=== PATIENT | male | born 1930 | race Caucasian/White ===

== ENCOUNTER 2018-08-28 15:38 | Inpatient (IN) ==
[2018-08-28] MEDS ORDERED: ALBUTEROL/IPRATROPIUM 3 ML NEB RESP TX STA (16:24)
[2018-08-28 16:29] LABS: Basophils % 0.2 % (0.0-0.8); Hematocrit 45.8 VOL% (42.0-52.0); Hemoglobin 15.4 GM/DL (14.0-18.0); Immature Granulocytes Absolute 0.08 #; Lymphocytes # 0.7 10*3/uL (1.4-4.0); Lymphocytes % 8.4 % (21.2-54.2); Mean Corpuscular HGB Conc 33.6 GM/DL (32-36); Mean Corpuscular Hemoglobin 35 PG (27-34); Mean Corpuscular Volume 104.1 FL (87-102); Mean Platelet Volume 11.5 FL (9.6-12.0); Monocytes # 0.5 10*3/uL (0.11-0.8); Monocytes % 6.3 % (1.7-12.7); Neutrophils % 84.1 % (38.7-73.9); Red Cell Distribution Width 15.3 % (9.3-17.3); White Blood Count 8.3 T/CUMM (4-12)
[2018-08-28 16:37] LABS: Platelet Count 93 T/CUMM (130-400)
[2018-08-28 16:53] LABS: Alanine Aminotransferase 37 U/L (16-61); Albumin 2.8 G/DL (3.4-5.0); Alkaline Phosphatase 90 U/L (45-117); Aspartate Amino Transferase 50 U/L (0-37); Blood Urea Nitrogen 24 MG/DL (7-18); Calcium 9.7 MG/DL (8.5-10.1); Glucose 233 MG/DL (74-106); Osmolality,Calculated 289.4 MOS/KG (273-304); Potassium 3.6 MMOL/L (3.5-5.1); Sodium 140 MMOL/L (136-145); Total Protein 6.4 G/DL (6.4-8.3); Troponin I 0.155 NG/ML (0.00-0.045)
[2018-08-28 16:57] LABS: Lactic Acid 3.3 MMOL/L (0.4-2.0)
[2018-08-28] MEDS ORDERED: ONDANSETRON 4 MG/2 ML VIAL IV STA (17:00)
[2018-08-28] MEDS ORDERED: methylPREDNISolone SOD SUC 125 MG/2 ML VIAL IV STA (17:00)
[2018-08-28] MEDS ORDERED: PIPERACILLIN/TAZOBACTAM 3,375 MG in SODIUM CHLORIDE 0.9% 100 ML IV STA ×2 (17:00→17:06)
[2018-08-28] MEDS ORDERED: FUROSEMIDE 100 MG/10 ML VIAL IV STA (17:00)
[2018-08-28 17:40] LABS: INR 1.4; Partial Thromboplastin Time 29.3 SECS (0-40)
[2018-08-28] MEDS ORDERED: ONDANSETRON 4 MG/2 ML VIAL IV PRN (17:43)
[2018-08-28] MEDS ORDERED: GLUCAGON 1 MG VIAL IM PRN (17:43)
[2018-08-28] MEDS ORDERED: ACETAMINOPHEN 325 MG TABLET PO PRN (17:43)
[2018-08-28] MEDS ORDERED: DEXTROSE 50% 25 GM/50 ML SYRINGE IV PRN (17:43)
[2018-08-28] MEDS ORDERED: ALBUTEROL 2.5 MG/3 ML NEB RESP TX PRN (18:01)
[2018-08-28 18:25] LABS: Folate > 24.0 NG/ML (5.4-24.0); Vitamin B12 631 PG/ML (211-911)
[2018-08-28 18:39] LABS: Apearance,Urine CLEAR (Clear); Bilirubin,Urine Negative (Negative); Blood, Urine Moderate mg/dL (Negative); Glucose,Urine (UA) Negative (Negative); Hyaline Casts,Urine 1 /LPF (0-3); Ketones,Urine Negative (Negative); Mucus,Urine Occasional /LPF (Occasional); Nitrite,Urine Negative (Negative); Protein,Urine 100 MG/DL; RBC,Urine 1 /HPF (0-4); Urine Color Yellow (Yellow); Urine Specific Gravity 1.008 (1.001-1.035); Urine Urobilinogen < 2.0 EU/DL (0.2-1.0); WBC,Urine <1 /HPF (0-6)
[2018-08-28 19:27] LABS: Platelet Estimate Decreased; Platelet Satellitism Few
[2018-08-28] MEDS: ALBUTEROL/IPRATROPIUM 3 ML NEB RESP TX SCH (19:37)
[2018-08-28] MEDS: FERROUS SULFATE 325 MG TABLET PO SCH (20:03)
[2018-08-28] MEDS: TAMSULOSIN 0.4 MG CAPSULE PO SCH (20:03)
[2018-08-28] MEDS: WARFARIN 4 MG TABLET PO SCH (20:03)
[2018-08-28] MEDS: SODIUM CHLORIDE 0.9% 1,000 ML IV SCH (20:04)
[2018-08-28] MEDS: POTASSIUM CHLORIDE 20 MEQ TABLET PO SCH (21:56)
[2018-08-28] MEDS: MAGNESIUM OXIDE 400 MG TABLET PO SCH (21:57)
[2018-08-28] MEDS: ATENOLOL 25 MG TABLET PO SCH (21:57)
[2018-08-28] MEDS: SIMVASTATIN 20 MG TABLET PO SCH (21:57)
[2018-08-28] MEDS: LEVOFLOXACIN INJ 750 MG in PREMIX 1 EACH IV SCH (21:58)
[2018-08-28] MEDS: BUDESONIDE/FORMOTEROL 160-4.5 INHALER 6 GM INH SCH (22:43)
[2018-08-29] MEDS: ALBUTEROL/IPRATROPIUM 3 ML NEB RESP TX SCH ×4 (00:26→17:58)
[2018-08-29] MEDS: PIPERACILLIN/TAZOBACTAM 3,375 MG in SODIUM CHLORIDE 0.9% 100 ML IV SCH ×3 (02:33→17:09)
[2018-08-29] MEDS: SODIUM CHLORIDE 0.9% 1,000 ML IV SCH ×3 (04:12→20:58)
[2018-08-29 05:06] LABS: Basophils % 0.1 % (0.0-0.8); Hematocrit 44.9 VOL% (42.0-52.0); Hemoglobin 14.5 GM/DL (14.0-18.0); INR 1.4; Immature Granulocytes % 0.4 %; Immature Granulocytes Absolute 0.03 #; Lymphocytes # 0.4 10*3/uL (1.4-4.0); Lymphocytes % 5.6 % (21.2-54.2); Mean Corpuscular HGB Conc 32.3 GM/DL (32-36); Mean Corpuscular Hemoglobin 34 PG (27-34); Mean Corpuscular Volume 104.7 FL (87-102); Mean Platelet Volume 11.7 FL (9.6-12.0); Monocytes # 0.2 10*3/uL (0.11-0.8); Monocytes % 2.8 % (1.7-12.7); Neutrophils # 6.6 10*3/uL (1.4-7.4); Neutrophils % 91.1 % (38.7-73.9); PT Patient Result 15.4 SECS; Red Blood Count 4.29 MC/CUMM (3.8-5.5); Red Cell Distribution Width 15.5 % (9.3-17.3); White Blood Count 7.2 T/CUMM (4-12)
[2018-08-29 05:10] LABS: Platelet Count 75 T/CUMM (130-400)
[2018-08-29 05:29] LABS: Band Neutrophils 2 % (0-10); Hypochromasia 1+; Lymphocytes 5 % (20-55); Platelet Estimate Decreased; Segmented Neutrophils 91 % (50-85); Total Cells Counted 100
[2018-08-29 05:33] LABS: Albumin 2.7 G/DL (3.4-5.0); Bilirubin,Total 1.4 MG/DL (0.2-1.0); Osmolality,Calculated 297.3 MOS/KG (273-304); Potassium 3.7 MMOL/L (3.5-5.1); Total Protein 5.9 G/DL (6.4-8.3)
[2018-08-29 05:36] LABS: Risk Ratio 3.27; Thyroid Stimulating Hormone 0.362 uIU/ml (0.358-3.74); VLDL CHOLESTEROL 21.4 MG/DL
[2018-08-29] MEDS: LEVOTHYROXINE 150 MCG TABLET PO SCH (06:10)
[2018-08-29] MEDS: methylPREDNISolone SOD SUC 40 MG/1 ML VIAL IV SCH ×2 (06:10→17:09)
[2018-08-29] MEDS: MONTELUKAST 10 MG TABLET PO SCH (08:47)
[2018-08-29] MEDS: ATENOLOL 25 MG TABLET PO SCH ×3 (08:47→20:57)
[2018-08-29] MEDS: POTASSIUM CHLORIDE 20 MEQ TABLET PO SCH ×2 (08:47→20:57)
[2018-08-29] MEDS: BUDESONIDE/FORMOTEROL 160-4.5 INHALER 6 GM INH SCH ×2 (08:47→20:57)
[2018-08-29] MEDS: PANTOPRAZOLE 40 MG TABLET PO SCH (08:47)
[2018-08-29] MEDS: FINASTERIDE 5 MG TABLET PO SCH (08:47)
[2018-08-29] MEDS ORDERED: MAGNESIUM OXIDE 400 MG TABLET PO SCH (09:00)
[2018-08-29] MEDS: WARFARIN 4 MG TABLET PO SCH (17:08)
[2018-08-29] MEDS: TAMSULOSIN 0.4 MG CAPSULE PO SCH (17:08)
[2018-08-29] MEDS: SIMVASTATIN 20 MG TABLET PO SCH (20:57)
[2018-08-29] MEDS: MAGNESIUM OXIDE 400 MG TABLET PO SCH (20:57)
[2018-08-30] MEDS: ALBUTEROL/IPRATROPIUM 3 ML NEB RESP TX SCH ×4 (00:49→21:46)
[2018-08-30] MEDS ORDERED: METOPROLOL TARTRATE 5 MG/5 ML VIAL IV ONE (01:24)
[2018-08-30] MEDS: PIPERACILLIN/TAZOBACTAM 3,375 MG in SODIUM CHLORIDE 0.9% 100 ML IV SCH ×3 (01:54→18:14)
[2018-08-30 04:03] LABS: Basophils % 0.2 % (0.0-0.8); Hematocrit 43.6 VOL% (42.0-52.0); Hemoglobin 13.8 GM/DL (14.0-18.0); Immature Granulocytes % 0.5 %; Immature Granulocytes Absolute 0.06 #; Lymphocytes # 0.4 10*3/uL (1.4-4.0); Lymphocytes % 3.7 % (21.2-54.2); Mean Corpuscular HGB Conc 31.7 GM/DL (32-36); Mean Corpuscular Hemoglobin 34 PG (27-34); Mean Corpuscular Volume 105.8 FL (87-102); Mean Platelet Volume 12.3 FL (9.6-12.0); Monocytes # 0.5 10*3/uL (0.11-0.8); Neutrophils # 10.8 10*3/uL (1.4-7.4); Neutrophils % 91.6 % (38.7-73.9); Red Blood Count 4.12 MC/CUMM (3.8-5.5); Red Cell Distribution Width 15.4 % (9.3-17.3); White Blood Count 11.8 T/CUMM (4-12)
[2018-08-30 04:08] LABS: Platelet Count 89 T/CUMM (130-400)
[2018-08-30 04:59] LABS: Calcium 9.8 MG/DL (8.5-10.1); Osmolality,Calculated 301.3 MOS/KG (273-304); Potassium 4.1 MMOL/L (3.5-5.1)
[2018-08-30] MEDS: methylPREDNISolone SOD SUC 40 MG/1 ML VIAL IV SCH ×2 (06:15→18:09)
[2018-08-30 06:17] LABS: Lymphocytes 2 % (20-55); Platelet Estimate Decreased; Polychromasia Few; Segmented Neutrophils 95 % (50-85); Total Cells Counted 100
[2018-08-30] MEDS: LEVOTHYROXINE 150 MCG TABLET PO SCH (06:19)
[2018-08-30] MEDS: MONTELUKAST 10 MG TABLET PO SCH (11:42)
[2018-08-30] MEDS: PANTOPRAZOLE 40 MG TABLET PO SCH (11:42)
[2018-08-30] MEDS: FINASTERIDE 5 MG TABLET PO SCH (11:45)
[2018-08-30] MEDS: ATENOLOL 25 MG TABLET PO SCH ×2 (11:45→21:58)
[2018-08-30] MEDS: BUDESONIDE/FORMOTEROL 160-4.5 INHALER 6 GM INH SCH ×2 (11:47→21:58)
[2018-08-30] MEDS: SODIUM CHLORIDE 0.9% 1,000 ML IV SCH (15:53)
[2018-08-30] MEDS: WARFARIN 4 MG TABLET PO SCH (18:06)
[2018-08-30] MEDS: TAMSULOSIN 0.4 MG CAPSULE PO SCH (18:07)
[2018-08-30] MEDS: FERROUS SULFATE 325 MG TABLET PO SCH (18:07)
[2018-08-30] MEDS: SIMVASTATIN 20 MG TABLET PO SCH (21:58)
[2018-08-30] MEDS: LEVOFLOXACIN INJ 750 MG in PREMIX 1 EACH IV SCH (22:00)
[2018-08-31] MEDS: ALBUTEROL/IPRATROPIUM 3 ML NEB RESP TX SCH ×2 (01:40→07:05)
[2018-08-31] MEDS: PIPERACILLIN/TAZOBACTAM 3,375 MG in SODIUM CHLORIDE 0.9% 100 ML IV SCH ×2 (03:05→10:34)
[2018-08-31 04:31] LABS: Basophils % 0.3 % (0.0-0.8); Hematocrit 40.6 VOL% (42.0-52.0); Hemoglobin 13.1 GM/DL (14.0-18.0); Immature Granulocytes % 1.2 %; Immature Granulocytes Absolute 0.14 #; Lymphocytes # 0.5 10*3/uL (1.4-4.0); Lymphocytes % 4.8 % (21.2-54.2); Mean Corpuscular HGB Conc 32.3 GM/DL (32-36); Mean Corpuscular Hemoglobin 34 PG (27-34); Mean Corpuscular Volume 105.5 FL (87-102); Mean Platelet Volume 12.1 FL (9.6-12.0); Monocytes # 0.4 10*3/uL (0.11-0.8); Monocytes % 3.7 % (1.7-12.7); NRBC # 0.02 10*3/uL; Neutrophils # 10.1 10*3/uL (1.4-7.4); Red Blood Count 3.85 MC/CUMM (3.8-5.5); White Blood Count 11.3 T/CUMM (4-12)
[2018-08-31 04:36] LABS: Platelet Count 95 T/CUMM (130-400)
[2018-08-31 04:46] LABS: INR 2.9
[2018-08-31 04:47] LABS: PT Patient Result 31.6 SECS
[2018-08-31 04:52] LABS: Calcium 9.7 MG/DL (8.5-10.1); Osmolality,Calculated 303.3 MOS/KG (273-304); Potassium 4.4 MMOL/L (3.5-5.1)
[2018-08-31 06:11] LABS: Calcium 9.5 MG/DL (8.5-10.1); Osmolality,Calculated 301.4 MOS/KG (273-304); Potassium 4.4 MMOL/L (3.5-5.1)
[2018-08-31] MEDS: LEVOTHYROXINE 150 MCG TABLET PO SCH (06:25)
[2018-08-31] MEDS: methylPREDNISolone SOD SUC 40 MG/1 ML VIAL IV SCH (06:25)
[2018-08-31] MEDS ORDERED: methylPREDNISolone SOD SUC 40 MG/1 ML VIAL IV SCH (07:49)
[2018-08-31 08:23] VITALS: BP 143/94
[2018-08-31] MEDS: MONTELUKAST 10 MG TABLET PO SCH (08:54)
[2018-08-31] MEDS: ATENOLOL 25 MG TABLET PO SCH (08:54)
[2018-08-31] MEDS: BUDESONIDE/FORMOTEROL 160-4.5 INHALER 6 GM INH SCH (08:54)
[2018-08-31] MEDS: PANTOPRAZOLE 40 MG TABLET PO SCH (08:54)
[2018-08-31] MEDS: FINASTERIDE 5 MG TABLET PO SCH (08:54)
[2018-08-31] MEDS: SODIUM CHLORIDE 0.9% 1,000 ML IV SCH (09:03)
[2018-08-31] MEDS ORDERED: cefTRIAXone 2,000 MG in SYRINGE 1 EACH IV ONE (10:16)
[2018-08-31] MEDS ORDERED: AZITHROMYCIN INJ 500 MG in SODIUM CHLORIDE 0.9% 250 ML IV ONE (10:26)
[2018-08-31] MEDS ORDERED: WARFARIN 3 MG TABLET PO SCH (18:00)
== END 2018-08-31 13:43 | disposition home health service (06) | DRG 872 ==
LOC: EDUNIT# → EDBD → N.ED 15:38 → N.EDINP 17:43 → N.TELES 19:01
PROVIDERS: ADMIT Internal Medicine Cardiovascular Disease; ATTEND Internal Medicine Cardiovascular Disease

== ENCOUNTER 2018-09-21 10:12 | Inpatient (IN) ==
[2018-09-21] MEDS ORDERED: ONDANSETRON 4 MG/2 ML VIAL IV STA (10:26)
[2018-09-21] MEDS ORDERED: ALBUTEROL/IPRATROPIUM 3 ML NEB RESP TX STA (10:26)
[2018-09-21 10:47] LABS: Basophils % 0.1 % (0.0-0.8); Eosinophils % 0.3 % (0.00-10.9); Hematocrit 46.3 VOL% (42.0-52.0); Hemoglobin 15.1 GM/DL (14.0-18.0); Immature Granulocytes % 1.3 %; Lymphocytes # 0.6 10*3/uL (1.4-4.0); Lymphocytes % 7.1 % (21.2-54.2); Mean Corpuscular HGB Conc 32.6 GM/DL (32-36); Mean Corpuscular Hemoglobin 33 PG (27-34); Mean Corpuscular Volume 102.2 FL (87-102); Mean Platelet Volume 11.6 FL (9.6-12.0); Monocytes # 0.4 10*3/uL (0.11-0.8); Monocytes % 4.5 % (1.7-12.7); Neutrophils # 6.8 10*3/uL (1.4-7.4); Neutrophils % 86.7 % (38.7-73.9); Platelet Count 96 T/CUMM (130-400); Red Blood Count 4.53 MC/CUMM (3.8-5.5); White Blood Count 7.8 T/CUMM (4-12)
[2018-09-21 11:07] LABS: Albumin 2.7 G/DL (3.4-5.0); Bilirubin,Total 1.1 MG/DL (0.2-1.0); Calcium 9.7 MG/DL (8.5-10.1); Osmolality,Calculated 285.5 MOS/KG (273-304); Potassium 5.3 MMOL/L (3.5-5.1); Total Protein 5.4 G/DL (6.4-8.3)
[2018-09-21 11:08] LABS: Troponin I 0.072 NG/ML (0.00-0.045)
[2018-09-21 12:06] LABS: Apearance,Urine CLEAR (Clear); Bilirubin,Urine Negative (Negative); Blood, Urine Negative (Negative); Glucose,Urine (UA) 50 mg/dL (Negative); Ketones,Urine Negative (Negative); Mucus,Urine Occasional /LPF (Occasional); Nitrite,Urine Negative (Negative); Protein,Urine 30 MG/DL; RBC,Urine 4 /HPF (0-4); Squamous Epithelial Cell,Urine Occasional /HPF (0-10); Urine Color Yellow (Yellow); Urine Specific Gravity 1.015 (1.001-1.035); Urine Urobilinogen < 2.0 EU/DL (0.2-1.0); WBC,Urine 2 /HPF (0-6)
[2018-09-21] MEDS ORDERED: FUROSEMIDE 40 MG/4 ML VIAL IV STA (12:06)
[2018-09-21 12:44] LABS: PT Patient Result 92.3 SECS; Partial Thromboplastin Time 43.7 SECS (0-40)
[2018-09-21 12:45] LABS: INR 8.7
[2018-09-21 12:56] LABS: Macrocytosis 1+
[2018-09-21 12:57] LABS: Platelet Estimate Decreased
[2018-09-21] MEDS ORDERED: ONDANSETRON 4 MG/2 ML VIAL IV PRN (13:34)
[2018-09-21] MEDS ORDERED: PHYTONADIONE 5 MG/5 ML ORAL.SYR PO ONE (13:50)
[2018-09-21] MEDS ORDERED: DEXTROSE 50% 25 GM/50 ML SYRINGE IV PRN (14:31)
[2018-09-21] MEDS ORDERED: GLUCAGON 1 MG VIAL IM PRN (14:31)
[2018-09-21] MEDS: TAMSULOSIN 0.4 MG CAPSULE PO SCH (17:45)
[2018-09-21] MEDS: INSULIN LISPRO 100 UNIT/ML SUBCUT SCH ×2 (17:45→21:58)
[2018-09-21] MEDS ORDERED: ENOXAPARIN 40 MG/0.4 ML SYRINGE SUBCUT SCH (21:00)
[2018-09-21] MEDS: ATENOLOL 25 MG TABLET PO SCH (21:46)
[2018-09-21] MEDS: SIMVASTATIN 20 MG TABLET PO SCH (21:46)
[2018-09-21] MEDS: POTASSIUM CHLORIDE 20 MEQ TABLET PO SCH (21:47)
[2018-09-21] MEDS: FUROSEMIDE 40 MG/4 ML VIAL IV SCH (21:48)
[2018-09-22 04:44] LABS: Basophils % 0.3 % (0.0-0.8); Eosinophils % 0.2 % (0.00-10.9); Hematocrit 46.8 VOL% (42.0-52.0); Hemoglobin 15.2 GM/DL (14.0-18.0); Immature Granulocytes Absolute 0.06 #; Lymphocytes # 0.5 10*3/uL (1.4-4.0); Lymphocytes % 7.8 % (21.2-54.2); Mean Corpuscular HGB Conc 32.5 GM/DL (32-36); Mean Corpuscular Hemoglobin 34 PG (27-34); Mean Corpuscular Volume 103.1 FL (87-102); Mean Platelet Volume 11.6 FL (9.6-12.0); Monocytes # 0.3 10*3/uL (0.11-0.8); Monocytes % 4.6 % (1.7-12.7); Neutrophils # 5.4 10*3/uL (1.4-7.4); Neutrophils % 86.1 % (38.7-73.9); Platelet Count 77 T/CUMM (130-400); Red Blood Count 4.54 MC/CUMM (3.8-5.5); Red Cell Distribution Width 14.8 % (9.3-17.3); White Blood Count 6.3 T/CUMM (4-12)
[2018-09-22 05:25] LABS: Calcium 8.9 MG/DL (8.5-10.1); Osmolality,Calculated 283.4 MOS/KG (273-304); Potassium 4.1 MMOL/L (3.5-5.1); Thyroid Stimulating Hormone 1.1 uIU/ml (0.358-3.74)
[2018-09-22 05:32] LABS: INR 3.4
[2018-09-22 05:33] LABS: PT Patient Result 36.1 SECS
[2018-09-22] MEDS: LEVOTHYROXINE 150 MCG TABLET PO SCH (06:41)
[2018-09-22 08:26] LABS: Eosinophils 1 % (0-10); Lymphocytes 4 % (20-55); Platelet Estimate Decreased; Polychromasia Slight; Segmented Neutrophils 89 % (50-85); Total Cells Counted 100
[2018-09-22 08:27] LABS: Ovalocytes Slight; Schistocytes Slight
[2018-09-22] MEDS: POTASSIUM CHLORIDE 20 MEQ TABLET PO SCH ×2 (10:02→22:14)
[2018-09-22] MEDS: ATENOLOL 25 MG TABLET PO SCH ×2 (10:02→22:13)
[2018-09-22] MEDS: PANTOPRAZOLE 40 MG TABLET PO SCH (10:02)
[2018-09-22] MEDS: FINASTERIDE 5 MG TABLET PO SCH (10:02)
[2018-09-22] MEDS: FUROSEMIDE 40 MG/4 ML VIAL IV SCH ×2 (10:03→22:19)
[2018-09-22] MEDS: INSULIN LISPRO 100 UNIT/ML SUBCUT SCH ×4 (10:06→21:17)
[2018-09-22 11:45] LABS: Apearance,Urine CLEAR (Clear); Bilirubin,Urine Negative (Negative); Blood, Urine Small mg/dL (Negative); Glucose,Urine (UA) 50 mg/dL (Negative); Ketones,Urine Negative (Negative); Mucus,Urine Occasional /LPF (Occasional); Nitrite,Urine Negative (Negative); Protein,Urine Negative; RBC,Urine 1 /HPF (0-4); Squamous Epithelial Cell,Urine Occasional /HPF (0-10); Urine Color Straw (Yellow); Urine Specific Gravity 1.006 (1.001-1.035); Urine Urobilinogen < 2.0 EU/DL (0.2-1.0); WBC,Urine 2 /HPF (0-6)
[2018-09-22] MEDS: TAMSULOSIN 0.4 MG CAPSULE PO SCH (17:06)
[2018-09-22] MEDS: SIMVASTATIN 20 MG TABLET PO SCH (22:13)
[2018-09-23 04:52] LABS: INR 1.3; PT Patient Result 14.2 SECS
[2018-09-23 04:54] LABS: Basophils % 0.2 % (0.0-0.8); Eosinophils % 0.7 % (0.00-10.9); Hematocrit 46.8 VOL% (42.0-52.0); Hemoglobin 15.4 GM/DL (14.0-18.0); Immature Granulocytes Absolute 0.06 #; Lymphocytes # 0.7 10*3/uL (1.4-4.0); Lymphocytes % 11.6 % (21.2-54.2); Mean Corpuscular HGB Conc 32.9 GM/DL (32-36); Mean Corpuscular Hemoglobin 34 PG (27-34); Mean Corpuscular Volume 103.3 FL (87-102); Mean Platelet Volume 12.4 FL (9.6-12.0); Monocytes # 0.4 10*3/uL (0.11-0.8); Neutrophils # 4.8 10*3/uL (1.4-7.4); Neutrophils % 80.5 % (38.7-73.9); Red Blood Count 4.53 MC/CUMM (3.8-5.5); Red Cell Distribution Width 14.9 % (9.3-17.3)
[2018-09-23 04:55] LABS: Platelet Count 61 T/CUMM (130-400)
[2018-09-23 05:18] LABS: Macrocytosis Slight
[2018-09-23 05:19] LABS: Calcium 8.7 MG/DL (8.5-10.1); Hypochromasia Slight; Osmolality,Calculated 287.4 MOS/KG (273-304); Platelet Estimate Decreased; Potassium 4.7 MMOL/L (3.5-5.1)
[2018-09-23] MEDS: LEVOTHYROXINE 150 MCG TABLET PO SCH (06:40)
[2018-09-23] MEDS: INSULIN LISPRO 100 UNIT/ML SUBCUT SCH ×2 (08:30→13:39)
[2018-09-23] MEDS ORDERED: ASPIRIN EC 81 MG TABLET PO SCH (09:00)
[2018-09-23] MEDS: FUROSEMIDE 40 MG/4 ML VIAL IV SCH (09:43)
[2018-09-23] MEDS: ATENOLOL 25 MG TABLET PO SCH (09:58)
[2018-09-23] MEDS: FINASTERIDE 5 MG TABLET PO SCH (09:59)
[2018-09-23] MEDS: POTASSIUM CHLORIDE 20 MEQ TABLET PO SCH (09:59)
[2018-09-23] MEDS: PANTOPRAZOLE 40 MG TABLET PO SCH (09:59)
[2018-09-23 12:52] VITALS: BP 105/69
[2018-09-23] MEDS ORDERED: BISACODYL 5 MG TABLET PO PRN (13:44)
[2018-09-23] MEDS ORDERED: FERROUS SULFATE 325 MG TABLET PO SCH (18:00)
== END 2018-09-23 15:43 | disposition swing bed (61) | DRG 292 ==
LOC: EDBD → EDUNIT# → N.ED 10:12 → N.TELES 13:11 → SUATTDRO 13:11 → N.TELES 14:31
PROVIDERS: ADMIT Internal Medicine; ATTEND Internal Medicine

== ENCOUNTER 2018-10-09 11:06 | Inpatient (IN) ==
[2018-10-09] MEDS ORDERED: SODIUM CHLORIDE 0.9% 1,000 ML IV STA (11:31)
[2018-10-09 11:36] LABS: Basophils % 0.5 % (0.0-0.8); Eosinophils % 0.2 % (0.00-10.9); Hematocrit 36.7 VOL% (42.0-52.0); Hemoglobin 11.6 GM/DL (14.0-18.0); Immature Granulocytes % 4.9 %; Immature Granulocytes Absolute 0.29 #; Lymphocytes # 0.7 10*3/uL (1.4-4.0); Lymphocytes % 12.5 % (21.2-54.2); Mean Corpuscular HGB Conc 31.6 GM/DL (32-36); Mean Corpuscular Hemoglobin 33 PG (27-34); Mean Corpuscular Volume 102.8 FL (87-102); Monocytes # 0.3 10*3/uL (0.11-0.8); Monocytes % 5.4 % (1.7-12.7); Neutrophils # 4.5 10*3/uL (1.4-7.4); Neutrophils % 76.5 % (38.7-73.9); Platelet Count 178 T/CUMM (130-400); Red Blood Count 3.57 MC/CUMM (3.8-5.5); Red Cell Distribution Width 15.6 % (9.3-17.3); White Blood Count 5.9 T/CUMM (4-12)
[2018-10-09 11:45] LABS: INR 1.1; PT Patient Result 11.8 SECS; Partial Thromboplastin Time 26.2 SECS (0-40)
[2018-10-09 12:12] LABS: ABG Base Excess 4.4 MMOL/L (-2.5-2.5); ABG HCO3 28.2 MMOL/L (20-26); ABG Oxygen Saturation 88.2 % (95-100); ABG PCO2 32.2 MM HG (35-48); ABG PH 7.527 (7.35-7.45); ABG PO2 53.7 MM HG (80-95); ABG TCO2 23.6 MMOL/L (23-27)
[2018-10-09] MEDS ORDERED: FUROSEMIDE 40 MG/4 ML VIAL IV STA (12:16)
[2018-10-09 12:41] LABS: Albumin 1.9 G/DL (3.4-5.0); Bilirubin,Total 0.8 MG/DL (0.2-1.0); Calcium 9.5 MG/DL (8.5-10.1); Osmolality,Calculated 290.5 MOS/KG (273-304); Potassium 4.7 MMOL/L (3.5-5.1); Total Protein 4.6 G/DL (6.4-8.3)
[2018-10-09] MEDS ORDERED: ONDANSETRON 4 MG/2 ML VIAL IV PRN (13:53)
[2018-10-09] MEDS ORDERED: diphenhydrAMINE CAP 25 MG CAPSULE PO PRN (13:53)
[2018-10-09] MEDS ORDERED: PROMETHAZINE 25 MG/1 ML VIAL IM PRN (13:53)
[2018-10-09] MEDS ORDERED: ACETAMINOPHEN 325 MG TABLET PO PRN (13:53)
[2018-10-09] MEDS ORDERED: traZODone 50 MG TABLET PO PRN (13:53)
[2018-10-09] MEDS ORDERED: HEPARIN 5,000 UNIT/1 ML VIAL SUBCUT SCH (14:00)
[2018-10-09] MEDS ORDERED: ENOXAPARIN 150 MG/ML SYRINGE SUBCUT STA (14:53)
[2018-10-09] MEDS ORDERED: ENOXAPARIN 120 MG/0.8 ML SYRINGE SUBCUT STA (14:53)
[2018-10-09] MEDS: methylPREDNISolone SOD SUC 40 MG/1 ML VIAL IV SCH ×2 (15:22→22:36)
[2018-10-09] MEDS: ALBUTEROL/IPRATROPIUM 3 ML NEB RESP TX SCH ×2 (15:29→19:15)
[2018-10-09 15:51] LABS: Apearance,Urine CLEAR (Clear); Bacteria,Urine Occasional /HPF (Few); Bilirubin,Urine Negative (Negative); Blood, Urine Negative (Negative); Glucose,Urine (UA) Negative (Negative); Ketones,Urine Negative (Negative); Nitrite,Urine Negative (Negative); Protein,Urine Negative; RBC,Urine <1 /HPF (0-4); Urine Color Straw (Yellow); Urine Specific Gravity 1.005 (1.001-1.035); Urine Urobilinogen < 2.0 EU/DL (0.2-1.0); WBC,Urine <1 /HPF (0-6)
[2018-10-09 15:59] LABS: Barbiturates Screen,Urine Negative (Negative); Benzodiazepines Screen,Urine Negative (Negative); Cannabinoid Screen,Urine Negative (Negative); Opiate Screen,Urine Negative (Negative); Phencyclidine Screen,Urine Negative (Negative)
[2018-10-09] MEDS: FUROSEMIDE 40 MG/4 ML VIAL IV SCH (17:25)
[2018-10-09] MEDS: DILTIAZEM 30 MG TABLET PO SCH ×2 (17:26→22:37)
[2018-10-09] MEDS: metOLazone 5 MG TABLET PO SCH (17:26)
[2018-10-09] MEDS: FERROUS SULFATE 325 MG TABLET PO SCH (17:27)
[2018-10-09] MEDS: INSULIN LISPRO 100 UNIT/ML SUBCUT SCH ×2 (17:27→22:38)
[2018-10-09] MEDS: TAMSULOSIN 0.4 MG CAPSULE PO SCH (18:10)
[2018-10-09] MEDS ORDERED: ATENOLOL 25 MG TABLET PO SCH (21:00)
[2018-10-09] MEDS ORDERED: SODIUM CHLORIDE 0.9% 500 ML IV ONE (21:20)
[2018-10-09] MEDS: DOCUSATE SODIUM 100 MG CAPSULE PO SCH (22:37)
[2018-10-09] MEDS: ZINC OXIDE PASTE 113 GM TUBE TOP SCH (22:37)
[2018-10-09] MEDS: MONTELUKAST 10 MG TABLET PO SCH (22:37)
[2018-10-09] MEDS: SIMVASTATIN 20 MG TABLET PO SCH (22:37)
[2018-10-09] MEDS: BUDESONIDE/FORMOTEROL 160-4.5 INHALER 6 GM INH SCH (22:37)
[2018-10-09] MEDS: POLYVINYL ALCOHOL 1.4% OPH SOLN 15 ML BOTTLE RIGHT EYE SCH (22:38)
[2018-10-09] MEDS: ACYCLOVIR 200 MG CAPSULE PO SCH (22:41)
[2018-10-10] MEDS: methylPREDNISolone SOD SUC 40 MG/1 ML VIAL IV SCH ×4 (03:13→21:59)
[2018-10-10 05:20] LABS: Basophils % 0.2 % (0.0-0.8); Hematocrit 33.3 VOL% (42.0-52.0); Immature Granulocytes % 5.5 %; Immature Granulocytes Absolute 0.29 #; Lymphocytes # 0.6 10*3/uL (1.4-4.0); Lymphocytes % 11.2 % (21.2-54.2); Mean Corpuscular Hemoglobin 33 PG (27-34); Mean Corpuscular Volume 100.6 FL (87-102); Mean Platelet Volume 10.8 FL (9.6-12.0); Monocytes # 0.1 10*3/uL (0.11-0.8); Monocytes % 2.3 % (1.7-12.7); Neutrophils # 4.3 10*3/uL (1.4-7.4); Neutrophils % 80.8 % (38.7-73.9); Platelet Count 179 T/CUMM (130-400); Red Blood Count 3.31 MC/CUMM (3.8-5.5); Red Cell Distribution Width 15.4 % (9.3-17.3); White Blood Count 5.3 T/CUMM (4-12)
[2018-10-10 05:44] LABS: Albumin 1.8 G/DL (3.4-5.0); Bilirubin,Total 0.8 MG/DL (0.2-1.0); Calcium 9.3 MG/DL (8.5-10.1); Osmolality,Calculated 293.8 MOS/KG (273-304); Potassium 3.6 MMOL/L (3.5-5.1); Total Protein 5.1 G/DL (6.4-8.3)
[2018-10-10] MEDS ORDERED: ENOXAPARIN 150 MG/ML SYRINGE SUBCUT SCH (06:00)
[2018-10-10] MEDS: LEVOTHYROXINE 150 MCG TABLET PO SCH (06:10)
[2018-10-10 06:16] LABS: Lymphocytes 7 % (20-55); Platelet Estimate Decreased; Polychromasia Few; Segmented Neutrophils 91 % (50-85); Total Cells Counted 100
[2018-10-10] MEDS: ALBUTEROL/IPRATROPIUM 3 ML NEB RESP TX SCH ×3 (07:22→19:58)
[2018-10-10] MEDS ORDERED: ENOXAPARIN 100 MG/ML SYRINGE SUBCUT ONE (08:30)
[2018-10-10] MEDS: MONTELUKAST 10 MG TABLET PO SCH ×2 (08:33→21:58)
[2018-10-10] MEDS: FINASTERIDE 5 MG TABLET PO SCH (08:33)
[2018-10-10] MEDS: ACYCLOVIR 200 MG CAPSULE PO SCH ×2 (08:33→21:59)
[2018-10-10] MEDS: DOCUSATE SODIUM 100 MG CAPSULE PO SCH ×2 (08:34→21:59)
[2018-10-10] MEDS: PANTOPRAZOLE 40 MG TABLET PO SCH (08:34)
[2018-10-10] MEDS: DILTIAZEM 30 MG TABLET PO SCH ×4 (08:34→21:58)
[2018-10-10] MEDS: FUROSEMIDE 40 MG/4 ML VIAL IV SCH ×2 (08:35→16:43)
[2018-10-10] MEDS: INSULIN LISPRO 100 UNIT/ML SUBCUT SCH ×4 (08:36→22:01)
[2018-10-10] MEDS: ZINC OXIDE PASTE 113 GM TUBE TOP SCH ×2 (08:41→21:59)
[2018-10-10] MEDS: BUDESONIDE/FORMOTEROL 160-4.5 INHALER 6 GM INH SCH ×2 (08:41→22:00)
[2018-10-10] MEDS: APIXABAN 2.5 MG TABLET PO SCH ×2 (08:49→21:59)
[2018-10-10] MEDS ORDERED: ENOXAPARIN 100 MG/ML SYRINGE SUBCUT SCH (09:00)
[2018-10-10] MEDS: POLYVINYL ALCOHOL 1.4% OPH SOLN 15 ML BOTTLE RIGHT EYE SCH ×3 (11:28→21:59)
[2018-10-10] MEDS: FUROSEMIDE 40 MG TABLET PO SCH (21:59)
[2018-10-10] MEDS: SIMVASTATIN 20 MG TABLET PO SCH (21:59)
[2018-10-10] MEDS: TAMSULOSIN 0.4 MG CAPSULE PO SCH (21:59)
[2018-10-11] MEDS: methylPREDNISolone SOD SUC 40 MG/1 ML VIAL IV SCH ×4 (02:00→21:29)
[2018-10-11 04:08] LABS: Basophils % 0.1 % (0.0-0.8); Hematocrit 32.9 VOL% (42.0-52.0); Hemoglobin 10.7 GM/DL (14.0-18.0); Immature Granulocytes % 5.2 %; Immature Granulocytes Absolute 0.48 #; Lymphocytes # 0.5 10*3/uL (1.4-4.0); Lymphocytes % 5.6 % (21.2-54.2); Mean Corpuscular HGB Conc 32.5 GM/DL (32-36); Mean Corpuscular Hemoglobin 32 PG (27-34); Mean Corpuscular Volume 99.7 FL (87-102); Monocytes # 0.3 10*3/uL (0.11-0.8); Monocytes % 3.3 % (1.7-12.7); NRBC # 0.02 10*3/uL; Neutrophils % 85.8 % (38.7-73.9); Platelet Count 211 T/CUMM (130-400); Red Cell Distribution Width 14.9 % (9.3-17.3); White Blood Count 9.3 T/CUMM (4-12)
[2018-10-11 04:34] LABS: Bilirubin,Total 0.6 MG/DL (0.2-1.0); Calcium 9.5 MG/DL (8.5-10.1); Osmolality,Calculated 297.7 MOS/KG (273-304); Potassium 3.1 MMOL/L (3.5-5.1)
[2018-10-11 04:36] LABS: Band Neutrophils 2 % (0-10); Lymphocytes 5 % (20-55); Segmented Neutrophils 89 % (50-85); Total Cells Counted 100
[2018-10-11 04:37] LABS: Platelet Estimate Normal
[2018-10-11 04:38] LABS: Polychromasia Few
[2018-10-11] MEDS: LEVOTHYROXINE 150 MCG TABLET PO SCH (06:15)
[2018-10-11] MEDS: ALBUTEROL/IPRATROPIUM 3 ML NEB RESP TX SCH ×3 (07:12→19:36)
[2018-10-11] MEDS: INSULIN LISPRO 100 UNIT/ML SUBCUT SCH ×4 (09:28→21:30)
[2018-10-11] MEDS: FINASTERIDE 5 MG TABLET PO SCH (09:31)
[2018-10-11] MEDS: DOCUSATE SODIUM 100 MG CAPSULE PO SCH ×2 (09:31→21:29)
[2018-10-11] MEDS: FUROSEMIDE 40 MG TABLET PO SCH ×2 (09:31→16:02)
[2018-10-11] MEDS: DILTIAZEM 30 MG TABLET PO SCH ×4 (09:31→21:29)
[2018-10-11] MEDS: MONTELUKAST 10 MG TABLET PO SCH ×2 (09:31→21:29)
[2018-10-11] MEDS: BUDESONIDE/FORMOTEROL 160-4.5 INHALER 6 GM INH SCH ×2 (09:32→21:30)
[2018-10-11] MEDS: PANTOPRAZOLE 40 MG TABLET PO SCH (09:32)
[2018-10-11] MEDS: POLYVINYL ALCOHOL 1.4% OPH SOLN 15 ML BOTTLE RIGHT EYE SCH ×3 (09:32→21:30)
[2018-10-11] MEDS: ACYCLOVIR 200 MG CAPSULE PO SCH ×2 (09:32→21:29)
[2018-10-11] MEDS: APIXABAN 2.5 MG TABLET PO SCH ×2 (09:32→21:29)
[2018-10-11] MEDS: ZINC OXIDE PASTE 113 GM TUBE TOP SCH ×2 (09:32→21:30)
[2018-10-11] MEDS ORDERED: VANCOMYCIN INJ 1,000 MG in SODIUM CHLORIDE 0.9% 250 ML IV SCH (11:00)
[2018-10-11] MEDS: VANCOMYCIN INJ 1,750 MG in SODIUM CHLORIDE 0.9% 500 ML IV SCH (13:59)
[2018-10-11] MEDS: TAMSULOSIN 0.4 MG CAPSULE PO SCH (18:03)
[2018-10-11] MEDS: FERROUS SULFATE 325 MG TABLET PO SCH (18:03)
[2018-10-11] MEDS: SIMVASTATIN 20 MG TABLET PO SCH (21:29)
[2018-10-12] MEDS: methylPREDNISolone SOD SUC 40 MG/1 ML VIAL IV SCH ×2 (02:10→09:04)
[2018-10-12 04:10] LABS: Basophils # 0.1 10*3/uL (0.0-0.2); Basophils % 0.4 % (0.0-0.8); Hematocrit 36.9 VOL% (42.0-52.0); Hemoglobin 12.1 GM/DL (14.0-18.0); Immature Granulocytes % 7.9 %; Immature Granulocytes Absolute 1.03 #; Lymphocytes # 0.6 10*3/uL (1.4-4.0); Lymphocytes % 4.3 % (21.2-54.2); Mean Corpuscular HGB Conc 32.8 GM/DL (32-36); Mean Corpuscular Hemoglobin 32 PG (27-34); Mean Corpuscular Volume 98.1 FL (87-102); Monocytes # 0.5 10*3/uL (0.11-0.8); Monocytes % 3.4 % (1.7-12.7); NRBC # 0.03 10*3/uL; Platelet Count 239 T/CUMM (130-400); Red Blood Count 3.76 MC/CUMM (3.8-5.5); Red Cell Distribution Width 15.2 % (9.3-17.3); White Blood Count 13.1 T/CUMM (4-12)
[2018-10-12 04:24] LABS: Albumin 2.1 G/DL (3.4-5.0); Bilirubin,Total 0.8 MG/DL (0.2-1.0); Calcium 9.9 MG/DL (8.5-10.1); Osmolality,Calculated 301.8 MOS/KG (273-304); Potassium 2.8 MMOL/L (3.5-5.1); Total Protein 5.4 G/DL (6.4-8.3)
[2018-10-12 04:55] LABS: Lymphocytes 4 % (20-55); Segmented Neutrophils 93 % (50-85); Total Cells Counted 100
[2018-10-12 04:59] LABS: Platelet Estimate Normal
[2018-10-12] MEDS: LEVOTHYROXINE 150 MCG TABLET PO SCH (06:50)
[2018-10-12] MEDS: POTASSIUM CHLORIDE 20 MEQ TABLET PO PRN ×3 (06:50→21:49)
[2018-10-12] MEDS: ALBUTEROL/IPRATROPIUM 3 ML NEB RESP TX SCH ×4 (07:49→19:30)
[2018-10-12] MEDS ORDERED: INSULIN GLARGINE 100 UNIT/ML SUBCUT SCH (09:00)
[2018-10-12] MEDS: metOLazone 5 MG TABLET PO SCH (09:03)
[2018-10-12] MEDS: INSULIN LISPRO 100 UNIT/ML SUBCUT SCH ×4 (09:03→21:49)
[2018-10-12] MEDS: FINASTERIDE 5 MG TABLET PO SCH (09:04)
[2018-10-12] MEDS: ACYCLOVIR 200 MG CAPSULE PO SCH ×2 (09:04→21:50)
[2018-10-12] MEDS: APIXABAN 2.5 MG TABLET PO SCH ×2 (09:04→21:50)
[2018-10-12] MEDS: FUROSEMIDE 40 MG TABLET PO SCH ×2 (09:04→16:16)
[2018-10-12] MEDS: MONTELUKAST 10 MG TABLET PO SCH ×2 (09:04→21:50)
[2018-10-12] MEDS: DOCUSATE SODIUM 100 MG CAPSULE PO SCH ×2 (09:05→21:50)
[2018-10-12] MEDS: BUDESONIDE/FORMOTEROL 160-4.5 INHALER 6 GM INH SCH ×2 (09:05→21:51)
[2018-10-12] MEDS: ZINC OXIDE PASTE 113 GM TUBE TOP SCH ×2 (09:05→21:51)
[2018-10-12] MEDS: POLYVINYL ALCOHOL 1.4% OPH SOLN 15 ML BOTTLE RIGHT EYE SCH ×3 (09:05→21:51)
[2018-10-12] MEDS: PANTOPRAZOLE 40 MG TABLET PO SCH (09:05)
[2018-10-12] MEDS: DILTIAZEM 30 MG TABLET PO SCH ×4 (09:05→21:50)
[2018-10-12] MEDS ORDERED: POTASSIUM CHLORIDE 20 MEQ TABLET PO ONE (11:46)
[2018-10-12] MEDS: VANCOMYCIN INJ 1,750 MG in SODIUM CHLORIDE 0.9% 500 ML IV SCH (12:20)
[2018-10-12] MEDS: TAMSULOSIN 0.4 MG CAPSULE PO SCH (17:34)
[2018-10-12] MEDS: SIMVASTATIN 20 MG TABLET PO SCH (21:50)
[2018-10-13] MEDS: POTASSIUM CHLORIDE 20 MEQ TABLET PO PRN ×3 (00:10→05:28)
[2018-10-13 04:27] LABS: Basophils # 0.1 10*3/uL (0.0-0.2); Basophils % 0.6 % (0.0-0.8); Hematocrit 39.2 VOL% (42.0-52.0); Hemoglobin 12.8 GM/DL (14.0-18.0); Immature Granulocytes % 11.7 %; Immature Granulocytes Absolute 1.73 #; Lymphocytes # 0.7 10*3/uL (1.4-4.0); Lymphocytes % 4.9 % (21.2-54.2); Mean Corpuscular HGB Conc 32.7 GM/DL (32-36); Mean Corpuscular Hemoglobin 33 PG (27-34); Mean Corpuscular Volume 99.5 FL (87-102); Mean Platelet Volume 10.8 FL (9.6-12.0); Monocytes # 0.9 10*3/uL (0.11-0.8); Monocytes % 5.9 % (1.7-12.7); NRBC # 0.06 10*3/uL; Neutrophils # 11.4 10*3/uL (1.4-7.4); Neutrophils % 76.9 % (38.7-73.9); Platelet Count 239 T/CUMM (130-400); Red Blood Count 3.94 MC/CUMM (3.8-5.5); Red Cell Distribution Width 15.1 % (9.3-17.3); White Blood Count 14.8 T/CUMM (4-12)
[2018-10-13 04:46] LABS: Albumin 2.3 G/DL (3.4-5.0); Bilirubin,Total 0.6 MG/DL (0.2-1.0); Calcium 10.4 MG/DL (8.5-10.1); Potassium 3.1 MMOL/L (3.5-5.1); Total Protein 5.3 G/DL (6.4-8.3)
[2018-10-13 05:05] LABS: Lymphocytes 11 % (20-55); Nucleated Red Blood Cells 1 (0-5); Platelet Estimate Normal; Segmented Neutrophils 87 % (50-85); Total Cells Counted 100
[2018-10-13 05:06] LABS: Polychromasia Few
[2018-10-13] MEDS: LEVOTHYROXINE 150 MCG TABLET PO SCH (05:30)
[2018-10-13] MEDS: ALBUTEROL/IPRATROPIUM 3 ML NEB RESP TX SCH ×3 (08:02→19:26)
[2018-10-13] MEDS ORDERED: FUROSEMIDE 40 MG TABLET PO SCH (09:00)
[2018-10-13] MEDS: MONTELUKAST 10 MG TABLET PO SCH ×2 (09:55→22:10)
[2018-10-13] MEDS: APIXABAN 2.5 MG TABLET PO SCH ×2 (09:55→22:10)
[2018-10-13] MEDS: DOCUSATE SODIUM 100 MG CAPSULE PO SCH ×2 (09:55→22:11)
[2018-10-13] MEDS: predniSONE 20 MG TABLET PO SCH (09:55)
[2018-10-13] MEDS: DILTIAZEM 30 MG TABLET PO SCH ×4 (09:55→22:10)
[2018-10-13] MEDS: INSULIN GLARGINE 100 UNIT/ML SUBCUT SCH (09:56)
[2018-10-13] MEDS: BUDESONIDE/FORMOTEROL 160-4.5 INHALER 6 GM INH SCH ×2 (09:56→22:12)
[2018-10-13] MEDS: ACYCLOVIR 200 MG CAPSULE PO SCH ×2 (09:56→22:10)
[2018-10-13] MEDS: FINASTERIDE 5 MG TABLET PO SCH (09:56)
[2018-10-13] MEDS: PANTOPRAZOLE 40 MG TABLET PO SCH (09:56)
[2018-10-13] MEDS: ZINC OXIDE PASTE 113 GM TUBE TOP SCH ×2 (09:57→22:11)
[2018-10-13] MEDS: POLYVINYL ALCOHOL 1.4% OPH SOLN 15 ML BOTTLE RIGHT EYE SCH ×3 (09:57→22:11)
[2018-10-13] MEDS: INSULIN LISPRO 100 UNIT/ML SUBCUT SCH ×4 (09:58→22:11)
[2018-10-13] MEDS: POTASSIUM CHLORIDE 20 MEQ TABLET PO SCH (12:35)
[2018-10-13] MEDS: VANCOMYCIN INJ 1,750 MG in SODIUM CHLORIDE 0.9% 500 ML IV SCH (12:36)
[2018-10-13] MEDS: TAMSULOSIN 0.4 MG CAPSULE PO SCH (17:02)
[2018-10-13] MEDS: SIMVASTATIN 20 MG TABLET PO SCH (22:11)
[2018-10-14 04:24] LABS: Basophils # 0.1 10*3/uL (0.0-0.2); Basophils % 0.8 % (0.0-0.8); Hematocrit 39.1 VOL% (42.0-52.0); Hemoglobin 12.6 GM/DL (14.0-18.0); Immature Granulocytes % 14.7 %; Immature Granulocytes Absolute 1.87 #; Lymphocytes # 0.7 10*3/uL (1.4-4.0); Lymphocytes % 5.7 % (21.2-54.2); Mean Corpuscular HGB Conc 32.2 GM/DL (32-36); Mean Corpuscular Hemoglobin 32 PG (27-34); Mean Platelet Volume 10.7 FL (9.6-12.0); Monocytes # 0.8 10*3/uL (0.11-0.8); Monocytes % 6.4 % (1.7-12.7); NRBC # 0.09 10*3/uL; Neutrophils # 9.2 10*3/uL (1.4-7.4); Neutrophils % 72.4 % (38.7-73.9); Platelet Count 218 T/CUMM (130-400); Red Blood Count 3.91 MC/CUMM (3.8-5.5); Red Cell Distribution Width 15.2 % (9.3-17.3); White Blood Count 12.7 T/CUMM (4-12)
[2018-10-14 04:48] LABS: Albumin 2.3 G/DL (3.4-5.0); Bilirubin,Total 1.2 MG/DL (0.2-1.0); Calcium 10.1 MG/DL (8.5-10.1); Osmolality,Calculated 300.4 MOS/KG (273-304); Potassium 3.1 MMOL/L (3.5-5.1); Total Protein 4.9 G/DL (6.4-8.3)
[2018-10-14 04:52] LABS: Band Neutrophils 3 % (0-10); Lymphocytes 7 % (20-55); Segmented Neutrophils 86 % (50-85); Total Cells Counted 100
[2018-10-14 04:53] LABS: Hypochromasia 1+; Ovalocytes Slight; Platelet Estimate Adequate
[2018-10-14] MEDS: POTASSIUM CHLORIDE 20 MEQ TABLET PO PRN (06:14)
[2018-10-14] MEDS: LEVOTHYROXINE 150 MCG TABLET PO SCH (06:14)
[2018-10-14] MEDS: ALBUTEROL/IPRATROPIUM 3 ML NEB RESP TX SCH ×3 (07:38→19:18)
[2018-10-14] MEDS: FUROSEMIDE 40 MG TABLET PO SCH (08:39)
[2018-10-14] MEDS: ACYCLOVIR 200 MG CAPSULE PO SCH ×2 (08:39→21:18)
[2018-10-14] MEDS: POTASSIUM CHLORIDE 20 MEQ TABLET PO SCH (08:39)
[2018-10-14] MEDS: FINASTERIDE 5 MG TABLET PO SCH (08:39)
[2018-10-14] MEDS: DILTIAZEM 30 MG TABLET PO SCH ×4 (08:39→21:18)
[2018-10-14] MEDS: APIXABAN 2.5 MG TABLET PO SCH ×2 (08:39→21:19)
[2018-10-14] MEDS: MONTELUKAST 10 MG TABLET PO SCH ×2 (08:39→21:19)
[2018-10-14] MEDS: PANTOPRAZOLE 40 MG TABLET PO SCH (08:40)
[2018-10-14] MEDS: INSULIN GLARGINE 100 UNIT/ML SUBCUT SCH (08:40)
[2018-10-14] MEDS: BUDESONIDE/FORMOTEROL 160-4.5 INHALER 6 GM INH SCH ×2 (08:40→21:19)
[2018-10-14] MEDS: predniSONE 20 MG TABLET PO SCH (08:40)
[2018-10-14] MEDS: INSULIN LISPRO 100 UNIT/ML SUBCUT SCH ×4 (08:40→21:19)
[2018-10-14] MEDS: DOCUSATE SODIUM 100 MG CAPSULE PO SCH ×2 (08:40→21:19)
[2018-10-14] MEDS: ZINC OXIDE PASTE 113 GM TUBE TOP SCH ×2 (08:41→21:19)
[2018-10-14] MEDS: POLYVINYL ALCOHOL 1.4% OPH SOLN 15 ML BOTTLE RIGHT EYE SCH ×3 (08:41→21:19)
[2018-10-14] MEDS: VANCOMYCIN INJ 1,750 MG in SODIUM CHLORIDE 0.9% 500 ML IV SCH (15:18)
[2018-10-14] MEDS: TAMSULOSIN 0.4 MG CAPSULE PO SCH (17:50)
[2018-10-14] MEDS: FERROUS SULFATE 325 MG TABLET PO SCH (17:50)
[2018-10-14] MEDS: SIMVASTATIN 20 MG TABLET PO SCH (21:19)
[2018-10-15 05:03] LABS: Basophils # 0.1 10*3/uL (0.0-0.2); Basophils % 0.8 % (0.0-0.8); Immature Granulocytes % 13.2 %; Immature Granulocytes Absolute 1.82 #; Lymphocytes # 0.9 10*3/uL (1.4-4.0); Lymphocytes % 6.7 % (21.2-54.2); Mean Corpuscular HGB Conc 32.5 GM/DL (32-36); Mean Corpuscular Hemoglobin 32 PG (27-34); Mean Corpuscular Volume 99.8 FL (87-102); Mean Platelet Volume 10.3 FL (9.6-12.0); Monocytes # 0.9 10*3/uL (0.11-0.8); Monocytes % 6.3 % (1.7-12.7); NRBC # 0.11 10*3/uL; Platelet Count 214 T/CUMM (130-400); Red Blood Count 4.01 MC/CUMM (3.8-5.5); Red Cell Distribution Width 15.4 % (9.3-17.3); White Blood Count 13.7 T/CUMM (4-12)
[2018-10-15 05:18] LABS: Calcium 10.3 MG/DL (8.5-10.1); Osmolality,Calculated 295.3 MOS/KG (273-304); Potassium 2.7 MMOL/L (3.5-5.1)
[2018-10-15 05:32] LABS: Band Neutrophils 4 % (0-10); Hypochromasia 1+; Lymphocytes 8 % (20-55); Platelet Estimate Adequate; Segmented Neutrophils 85 % (50-85); Total Cells Counted 100
[2018-10-15] MEDS: LEVOTHYROXINE 150 MCG TABLET PO SCH (06:21)
[2018-10-15] MEDS: POTASSIUM CHLORIDE 20 MEQ TABLET PO PRN ×2 (06:22→09:00)
[2018-10-15] MEDS: ALBUTEROL/IPRATROPIUM 3 ML NEB RESP TX SCH ×3 (07:05→19:05)
[2018-10-15] MEDS: FINASTERIDE 5 MG TABLET PO SCH (08:59)
[2018-10-15] MEDS: POLYVINYL ALCOHOL 1.4% OPH SOLN 15 ML BOTTLE RIGHT EYE SCH ×3 (08:59→21:31)
[2018-10-15] MEDS: BUDESONIDE/FORMOTEROL 160-4.5 INHALER 6 GM INH SCH ×2 (08:59→21:34)
[2018-10-15] MEDS: MONTELUKAST 10 MG TABLET PO SCH ×2 (08:59→21:31)
[2018-10-15] MEDS: ZINC OXIDE PASTE 113 GM TUBE TOP SCH ×2 (08:59→21:31)
[2018-10-15] MEDS: APIXABAN 2.5 MG TABLET PO SCH ×2 (09:00→21:31)
[2018-10-15] MEDS: predniSONE 20 MG TABLET PO SCH (09:00)
[2018-10-15] MEDS: ACYCLOVIR 200 MG CAPSULE PO SCH ×2 (09:00→21:31)
[2018-10-15] MEDS: PANTOPRAZOLE 40 MG TABLET PO SCH (09:00)
[2018-10-15] MEDS: INSULIN LISPRO 100 UNIT/ML SUBCUT SCH ×4 (09:00→21:30)
[2018-10-15] MEDS: DILTIAZEM 30 MG TABLET PO SCH ×4 (09:00→21:31)
[2018-10-15] MEDS: FUROSEMIDE 40 MG TABLET PO SCH (09:00)
[2018-10-15] MEDS: INSULIN GLARGINE 100 UNIT/ML SUBCUT SCH (09:01)
[2018-10-15] MEDS: DOCUSATE SODIUM 100 MG CAPSULE PO SCH ×2 (09:02→21:31)
[2018-10-15] MEDS: metOLazone 5 MG TABLET PO SCH (09:05)
[2018-10-15] MEDS ORDERED: POTASSIUM CHLORIDE 20 MEQ TABLET PO ONE ×2 (17:00→21:00)
[2018-10-15] MEDS: TAMSULOSIN 0.4 MG CAPSULE PO SCH (17:56)
[2018-10-15] MEDS: VANCOMYCIN INJ 1,750 MG in SODIUM CHLORIDE 0.9% 500 ML IV SCH (18:04)
[2018-10-15] MEDS: SIMVASTATIN 20 MG TABLET PO SCH (21:33)
[2018-10-16 04:50] LABS: Basophils # 0.1 10*3/uL (0.0-0.2); Basophils % 0.6 % (0.0-0.8); Hematocrit 39.5 VOL% (42.0-52.0); Immature Granulocytes % 10.4 %; Immature Granulocytes Absolute 1.49 #; Lymphocytes # 0.8 10*3/uL (1.4-4.0); Lymphocytes % 5.2 % (21.2-54.2); Mean Corpuscular HGB Conc 32.9 GM/DL (32-36); Mean Corpuscular Hemoglobin 33 PG (27-34); Mean Corpuscular Volume 99.5 FL (87-102); Mean Platelet Volume 10.9 FL (9.6-12.0); Monocytes # 0.7 10*3/uL (0.11-0.8); NRBC # 0.05 10*3/uL; Neutrophils # 11.3 10*3/uL (1.4-7.4); Neutrophils % 78.8 % (38.7-73.9); Platelet Count 182 T/CUMM (130-400); Red Blood Count 3.97 MC/CUMM (3.8-5.5); Red Cell Distribution Width 15.2 % (9.3-17.3); White Blood Count 14.3 T/CUMM (4-12)
[2018-10-16 05:05] LABS: Calcium 10.3 MG/DL (8.5-10.1); Osmolality,Calculated 289.5 MOS/KG (273-304); Potassium 2.6 MMOL/L (3.5-5.1)
[2018-10-16 05:21] LABS: Band Neutrophils 2 % (0-10); Hypochromasia 1+; Lymphocytes 7 % (20-55); Platelet Estimate Adequate; Segmented Neutrophils 86 % (50-85); Total Cells Counted 100
[2018-10-16] MEDS: POTASSIUM CHLORIDE 20 MEQ TABLET PO PRN (06:00)
[2018-10-16] MEDS: LEVOTHYROXINE 150 MCG TABLET PO SCH (06:00)
[2018-10-16] MEDS: ALBUTEROL/IPRATROPIUM 3 ML NEB RESP TX SCH ×3 (07:36→19:44)
[2018-10-16] MEDS: INSULIN GLARGINE 100 UNIT/ML SUBCUT SCH (09:28)
[2018-10-16] MEDS: POTASSIUM CHLORIDE 20 MEQ/15 ML UDCUP PO SCH ×4 (09:29→21:33)
[2018-10-16] MEDS: FUROSEMIDE 40 MG TABLET PO SCH (09:29)
[2018-10-16] MEDS: predniSONE 20 MG TABLET PO SCH (09:29)
[2018-10-16] MEDS: MONTELUKAST 10 MG TABLET PO SCH ×2 (09:29→21:34)
[2018-10-16] MEDS: FINASTERIDE 5 MG TABLET PO SCH (09:29)
[2018-10-16] MEDS: PANTOPRAZOLE 40 MG TABLET PO SCH (09:30)
[2018-10-16] MEDS: APIXABAN 2.5 MG TABLET PO SCH ×2 (09:30→21:34)
[2018-10-16] MEDS: DOCUSATE SODIUM 100 MG CAPSULE PO SCH (09:30)
[2018-10-16] MEDS: DILTIAZEM 30 MG TABLET PO SCH ×2 (09:30→13:02)
[2018-10-16] MEDS: INSULIN LISPRO 100 UNIT/ML SUBCUT SCH ×4 (09:30→21:24)
[2018-10-16] MEDS: ZINC OXIDE PASTE 113 GM TUBE TOP SCH ×2 (09:30→21:35)
[2018-10-16] MEDS: POLYVINYL ALCOHOL 1.4% OPH SOLN 15 ML BOTTLE RIGHT EYE SCH ×3 (09:30→21:34)
[2018-10-16] MEDS: ACYCLOVIR 200 MG CAPSULE PO SCH ×2 (09:30→21:43)
[2018-10-16] MEDS: BUDESONIDE/FORMOTEROL 160-4.5 INHALER 6 GM INH SCH ×2 (09:31→21:36)
[2018-10-16] MEDS: DILTIAZEM 60 MG TABLET PO SCH ×2 (16:38→21:33)
[2018-10-16] MEDS: FERROUS SULFATE 325 MG TABLET PO SCH (17:22)
[2018-10-16] MEDS: TAMSULOSIN 0.4 MG CAPSULE PO SCH (17:22)
[2018-10-16] MEDS: VANCOMYCIN INJ 1,750 MG in SODIUM CHLORIDE 0.9% 500 ML IV SCH (17:23)
[2018-10-16] MEDS: SIMVASTATIN 20 MG TABLET PO SCH (21:43)
[2018-10-17] MEDS: POTASSIUM CHLORIDE 20 MEQ/15 ML UDCUP PO SCH ×2 (01:27→05:45)
[2018-10-17] MEDS: DOCUSATE SODIUM 100 MG CAPSULE PO SCH ×3 (01:27→22:51)
[2018-10-17 04:03] LABS: Basophils # 0.1 10*3/uL (0.0-0.2); Basophils % 0.6 % (0.0-0.8); Hematocrit 40.8 VOL% (42.0-52.0); Hemoglobin 13.4 GM/DL (14.0-18.0); Immature Granulocytes % 10.5 %; Immature Granulocytes Absolute 1.96 #; Lymphocytes # 0.9 10*3/uL (1.4-4.0); Lymphocytes % 4.5 % (21.2-54.2); Mean Corpuscular HGB Conc 32.8 GM/DL (32-36); Mean Corpuscular Hemoglobin 33 PG (27-34); Mean Platelet Volume 11.1 FL (9.6-12.0); Monocytes % 5.2 % (1.7-12.7); NRBC # 0.05 10*3/uL; Neutrophils # 14.8 10*3/uL (1.4-7.4); Neutrophils % 79.2 % (38.7-73.9); Platelet Count 189 T/CUMM (130-400); Red Blood Count 4.08 MC/CUMM (3.8-5.5); Red Cell Distribution Width 15.6 % (9.3-17.3); White Blood Count 18.7 T/CUMM (4-12)
[2018-10-17 04:21] LABS: Osmolality,Calculated 288.7 MOS/KG (273-304); Potassium 3.3 MMOL/L (3.5-5.1)
[2018-10-17 05:00] LABS: Band Neutrophils 3 % (0-10); Hypochromasia 1+; Lymphocytes 6 % (20-55); Ovalocytes Slight; Platelet Estimate Adequate; Segmented Neutrophils 88 % (50-85); Total Cells Counted 100
[2018-10-17] MEDS: LEVOTHYROXINE 150 MCG TABLET PO SCH (05:59)
[2018-10-17] MEDS: POTASSIUM CHLORIDE 20 MEQ TABLET PO PRN ×3 (07:31→13:11)
[2018-10-17] MEDS: ALBUTEROL/IPRATROPIUM 3 ML NEB RESP TX SCH ×3 (07:42→19:32)
[2018-10-17] MEDS: INSULIN LISPRO 100 UNIT/ML SUBCUT SCH ×4 (09:46→19:35)
[2018-10-17] MEDS: INSULIN GLARGINE 100 UNIT/ML SUBCUT SCH (09:46)
[2018-10-17] MEDS: ZINC OXIDE PASTE 113 GM TUBE TOP SCH ×2 (09:47→22:53)
[2018-10-17] MEDS: BUDESONIDE/FORMOTEROL 160-4.5 INHALER 6 GM INH SCH ×2 (09:47→22:52)
[2018-10-17] MEDS: DILTIAZEM 60 MG TABLET PO SCH ×4 (09:47→22:51)
[2018-10-17] MEDS: FINASTERIDE 5 MG TABLET PO SCH (09:47)
[2018-10-17] MEDS: MONTELUKAST 10 MG TABLET PO SCH ×2 (09:47→22:51)
[2018-10-17] MEDS: ACYCLOVIR 200 MG CAPSULE PO SCH ×2 (09:47→22:51)
[2018-10-17] MEDS: POLYVINYL ALCOHOL 1.4% OPH SOLN 15 ML BOTTLE RIGHT EYE SCH ×3 (09:47→22:51)
[2018-10-17] MEDS: FUROSEMIDE 40 MG TABLET PO SCH (09:48)
[2018-10-17] MEDS: PANTOPRAZOLE 40 MG TABLET PO SCH (09:48)
[2018-10-17] MEDS: predniSONE 20 MG TABLET PO SCH (09:48)
[2018-10-17] MEDS: SERTRALINE 25 MG TABLET PO SCH (09:50)
[2018-10-17] MEDS: TAMSULOSIN 0.4 MG CAPSULE PO SCH (17:27)
[2018-10-17] MEDS: VANCOMYCIN INJ 1,750 MG in SODIUM CHLORIDE 0.9% 500 ML IV SCH (17:43)
[2018-10-17] MEDS: SIMVASTATIN 20 MG TABLET PO SCH (22:53)
[2018-10-18] MEDS: LEVOTHYROXINE 150 MCG TABLET PO SCH (06:06)
[2018-10-18] MEDS: ALBUTEROL/IPRATROPIUM 3 ML NEB RESP TX SCH ×3 (07:43→20:25)
[2018-10-18] MEDS: INSULIN LISPRO 100 UNIT/ML SUBCUT SCH ×4 (08:39→20:34)
[2018-10-18] MEDS: POLYVINYL ALCOHOL 1.4% OPH SOLN 15 ML BOTTLE RIGHT EYE SCH ×3 (09:48→20:33)
[2018-10-18] MEDS: ACYCLOVIR 200 MG CAPSULE PO SCH ×2 (09:49→20:35)
[2018-10-18] MEDS: predniSONE 10 MG TABLET PO SCH (09:49)
[2018-10-18] MEDS: DILTIAZEM 60 MG TABLET PO SCH ×4 (09:49→20:34)
[2018-10-18] MEDS: SERTRALINE 25 MG TABLET PO SCH (09:49)
[2018-10-18] MEDS: DOCUSATE SODIUM 100 MG CAPSULE PO SCH ×2 (09:49→20:34)
[2018-10-18] MEDS: PANTOPRAZOLE 40 MG TABLET PO SCH (09:49)
[2018-10-18] MEDS: FUROSEMIDE 40 MG TABLET PO SCH (09:49)
[2018-10-18] MEDS: MONTELUKAST 10 MG TABLET PO SCH ×2 (09:50→20:35)
[2018-10-18] MEDS: INSULIN GLARGINE 100 UNIT/ML SUBCUT SCH (09:50)
[2018-10-18] MEDS: FINASTERIDE 5 MG TABLET PO SCH (09:50)
[2018-10-18] MEDS: BUDESONIDE/FORMOTEROL 160-4.5 INHALER 6 GM INH SCH ×2 (09:50→20:36)
[2018-10-18] MEDS: ZINC OXIDE PASTE 113 GM TUBE TOP SCH ×2 (10:00→20:41)
[2018-10-18] MEDS: POTASSIUM CHLORIDE 20 MEQ TABLET PO PRN (14:45)
[2018-10-18] MEDS: FERROUS SULFATE 325 MG TABLET PO SCH (17:40)
[2018-10-18] MEDS: TAMSULOSIN 0.4 MG CAPSULE PO SCH (17:40)
[2018-10-18] MEDS: SIMVASTATIN 20 MG TABLET PO SCH (20:35)
[2018-10-19 05:51] LABS: Calcium 9.7 MG/DL (8.5-10.1); Osmolality,Calculated 286.8 MOS/KG (273-304)
[2018-10-19] MEDS: LEVOTHYROXINE 150 MCG TABLET PO SCH (06:26)
[2018-10-19] MEDS: ALBUTEROL/IPRATROPIUM 3 ML NEB RESP TX SCH ×3 (07:26→19:38)
[2018-10-19] MEDS: INSULIN LISPRO 100 UNIT/ML SUBCUT SCH ×4 (10:46→20:30)
[2018-10-19] MEDS: POLYVINYL ALCOHOL 1.4% OPH SOLN 15 ML BOTTLE RIGHT EYE SCH ×3 (10:46→22:55)
[2018-10-19] MEDS: BUDESONIDE/FORMOTEROL 160-4.5 INHALER 6 GM INH SCH ×2 (10:47→22:55)
[2018-10-19] MEDS: DILTIAZEM 60 MG TABLET PO SCH ×4 (10:48→22:55)
[2018-10-19] MEDS: predniSONE 10 MG TABLET PO SCH (10:48)
[2018-10-19] MEDS: FINASTERIDE 5 MG TABLET PO SCH (10:48)
[2018-10-19] MEDS: SERTRALINE 25 MG TABLET PO SCH (10:49)
[2018-10-19] MEDS: ACYCLOVIR 200 MG CAPSULE PO SCH ×2 (10:49→22:56)
[2018-10-19] MEDS: FUROSEMIDE 40 MG TABLET PO SCH (10:49)
[2018-10-19] MEDS: DOCUSATE SODIUM 100 MG CAPSULE PO SCH ×2 (10:49→22:56)
[2018-10-19] MEDS: MONTELUKAST 10 MG TABLET PO SCH ×2 (10:49→22:56)
[2018-10-19] MEDS: POTASSIUM CHLORIDE 20 MEQ/15 ML UDCUP PO SCH ×2 (10:50→22:54)
[2018-10-19] MEDS: INSULIN GLARGINE 100 UNIT/ML SUBCUT SCH (10:50)
[2018-10-19] MEDS: PANTOPRAZOLE 40 MG TABLET PO SCH (10:50)
[2018-10-19] MEDS: ZINC OXIDE PASTE 113 GM TUBE TOP SCH ×2 (10:51→22:55)
[2018-10-19] MEDS: TAMSULOSIN 0.4 MG CAPSULE PO SCH (16:59)
[2018-10-19] MEDS ORDERED: VANCOMYCIN INJ 1,750 MG in SODIUM CHLORIDE 0.9% 500 ML IV SCH (18:00)
[2018-10-19] MEDS: SIMVASTATIN 20 MG TABLET PO SCH (22:56)
[2018-10-20 04:04] LABS: Calcium 9.9 MG/DL (8.5-10.1)
[2018-10-20] MEDS: LEVOTHYROXINE 150 MCG TABLET PO SCH (06:12)
[2018-10-20] MEDS: ALBUTEROL/IPRATROPIUM 3 ML NEB RESP TX SCH ×3 (07:01→20:02)
[2018-10-20] MEDS: INSULIN GLARGINE 100 UNIT/ML SUBCUT SCH (08:53)
[2018-10-20] MEDS: INSULIN LISPRO 100 UNIT/ML SUBCUT SCH ×4 (08:54→21:53)
[2018-10-20] MEDS: ACYCLOVIR 200 MG CAPSULE PO SCH ×2 (08:55→21:49)
[2018-10-20] MEDS: MONTELUKAST 10 MG TABLET PO SCH ×2 (08:55→21:49)
[2018-10-20] MEDS: FINASTERIDE 5 MG TABLET PO SCH (08:55)
[2018-10-20] MEDS: POTASSIUM CHLORIDE 20 MEQ/15 ML UDCUP PO SCH ×7 (08:55→21:49)
[2018-10-20] MEDS: SERTRALINE 25 MG TABLET PO SCH (08:56)
[2018-10-20] MEDS: DOCUSATE SODIUM 100 MG CAPSULE PO SCH ×2 (08:56→21:49)
[2018-10-20] MEDS: predniSONE 10 MG TABLET PO SCH (08:56)
[2018-10-20] MEDS: DILTIAZEM 60 MG TABLET PO SCH ×4 (08:56→21:48)
[2018-10-20] MEDS: FUROSEMIDE 40 MG TABLET PO SCH (08:56)
[2018-10-20] MEDS: PANTOPRAZOLE 40 MG TABLET PO SCH (08:56)
[2018-10-20] MEDS: POLYVINYL ALCOHOL 1.4% OPH SOLN 15 ML BOTTLE RIGHT EYE SCH ×3 (09:07→21:49)
[2018-10-20] MEDS: ZINC OXIDE PASTE 113 GM TUBE TOP SCH ×2 (09:08→21:49)
[2018-10-20] MEDS: BUDESONIDE/FORMOTEROL 160-4.5 INHALER 6 GM INH SCH ×2 (09:08→21:49)
[2018-10-20] MEDS: TAMSULOSIN 0.4 MG CAPSULE PO SCH ×2 (16:42→18:55)
[2018-10-20] MEDS: SIMVASTATIN 20 MG TABLET PO SCH (21:48)
[2018-10-21] MEDS: POTASSIUM CHLORIDE 20 MEQ/15 ML UDCUP PO SCH ×6 (00:05→21:50)
[2018-10-21 06:29] LABS: Basophils % 0.2 % (0.0-0.8); Hematocrit 38.6 VOL% (42.0-52.0); Hemoglobin 12.7 GM/DL (14.0-18.0); Immature Granulocytes Absolute 1.25 #; Lymphocytes # 0.6 10*3/uL (1.4-4.0); Mean Corpuscular HGB Conc 32.9 GM/DL (32-36); Mean Corpuscular Hemoglobin 33 PG (27-34); Mean Corpuscular Volume 99.5 FL (87-102); Mean Platelet Volume 11.8 FL (9.6-12.0); Monocytes # 0.6 10*3/uL (0.11-0.8); Monocytes % 2.7 % (1.7-12.7); NRBC # 0.03 10*3/uL; Neutrophils # 18.5 10*3/uL (1.4-7.4); Neutrophils % 88.1 % (38.7-73.9); Platelet Count 146 T/CUMM (130-400); Red Blood Count 3.88 MC/CUMM (3.8-5.5); Red Cell Distribution Width 15.7 % (9.3-17.3); White Blood Count 20.9 T/CUMM (4-12)
[2018-10-21] MEDS: ALBUTEROL/IPRATROPIUM 3 ML NEB RESP TX SCH ×3 (06:47→19:28)
[2018-10-21 06:50] LABS: Hypochromasia 1+; Lymphocytes 2 % (20-55); Platelet Estimate Adequate; Segmented Neutrophils 96 % (50-85); Total Cells Counted 100
[2018-10-21 06:53] LABS: Calcium 10.2 MG/DL (8.5-10.1); Osmolality,Calculated 286.4 MOS/KG (273-304); Potassium 3.3 MMOL/L (3.5-5.1)
[2018-10-21] MEDS: INSULIN LISPRO 100 UNIT/ML SUBCUT SCH ×4 (08:58→19:50)
[2018-10-21] MEDS: INSULIN GLARGINE 100 UNIT/ML SUBCUT SCH (08:58)
[2018-10-21] MEDS ORDERED: LIDOCAINE 2% 5 ML VIAL ONE (10:00)
[2018-10-21] MEDS ORDERED: ETOMIDATE 20 MG/10 ML VIAL IV ONE (10:00)
[2018-10-21] MEDS ORDERED: PROPOFOL 200 MG/20 ML VIAL IV ONE (10:00)
[2018-10-21] MEDS: DILTIAZEM 60 MG TABLET PO SCH ×4 (10:24→21:50)
[2018-10-21] MEDS: POLYVINYL ALCOHOL 1.4% OPH SOLN 15 ML BOTTLE RIGHT EYE SCH ×3 (10:24→21:50)
[2018-10-21] MEDS: DOCUSATE SODIUM 100 MG CAPSULE PO SCH ×3 (10:25→21:50)
[2018-10-21] MEDS: ZINC OXIDE PASTE 113 GM TUBE TOP SCH ×2 (10:25→23:01)
[2018-10-21] MEDS: MONTELUKAST 10 MG TABLET PO SCH ×3 (10:25→21:50)
[2018-10-21] MEDS: BUDESONIDE/FORMOTEROL 160-4.5 INHALER 6 GM INH SCH ×2 (10:25→23:02)
[2018-10-21] MEDS: LEVOTHYROXINE 150 MCG TABLET PO SCH (13:34)
[2018-10-21] MEDS: SERTRALINE 25 MG TABLET PO SCH (13:35)
[2018-10-21] MEDS: FINASTERIDE 5 MG TABLET PO SCH (13:35)
[2018-10-21] MEDS: ACYCLOVIR 200 MG CAPSULE PO SCH ×2 (13:35→21:51)
[2018-10-21] MEDS: FUROSEMIDE 40 MG TABLET PO SCH (13:35)
[2018-10-21] MEDS: FLUCONAZOLE 100 MG TABLET PO SCH (13:35)
[2018-10-21] MEDS: METOCLOPRAMIDE 10 MG/10 ML UDCUP PO SCH ×3 (13:36→21:50)
[2018-10-21] MEDS: PANTOPRAZOLE 40 MG TABLET PO SCH (13:36)
[2018-10-21] MEDS: predniSONE 20 MG TABLET PO SCH (13:36)
[2018-10-21] MEDS ORDERED: DEXTROSE 50% 25 GM/50 ML SYRINGE IV PRN (15:38)
[2018-10-21] MEDS: FERROUS SULFATE 325 MG TABLET PO SCH (17:30)
[2018-10-21] MEDS: TAMSULOSIN 0.4 MG CAPSULE PO SCH (17:30)
[2018-10-21] MEDS: SIMVASTATIN 20 MG TABLET PO SCH (21:50)
[2018-10-22 04:12] LABS: Basophils % 0.2 % (0.0-0.8); Hemoglobin 12.7 GM/DL (14.0-18.0); Immature Granulocytes % 4.2 %; Immature Granulocytes Absolute 0.76 #; Lymphocytes # 0.6 10*3/uL (1.4-4.0); Lymphocytes % 3.4 % (21.2-54.2); Mean Corpuscular HGB Conc 32.6 GM/DL (32-36); Mean Corpuscular Hemoglobin 33 PG (27-34); Mean Corpuscular Volume 100.3 FL (87-102); Mean Platelet Volume 11.1 FL (9.6-12.0); Monocytes # 0.5 10*3/uL (0.11-0.8); Monocytes % 2.5 % (1.7-12.7); Neutrophils # 16.4 10*3/uL (1.4-7.4); Neutrophils % 89.7 % (38.7-73.9); Platelet Count 160 T/CUMM (130-400); Red Blood Count 3.89 MC/CUMM (3.8-5.5); Red Cell Distribution Width 15.9 % (9.3-17.3); White Blood Count 18.3 T/CUMM (4-12)
[2018-10-22 04:36] LABS: Calcium 9.8 MG/DL (8.5-10.1); Osmolality,Calculated 286.5 MOS/KG (273-304); Potassium 3.5 MMOL/L (3.5-5.1)
[2018-10-22 04:44] LABS: Hypochromasia Slight; Platelet Estimate Normal; Segmented Neutrophils 98 % (50-85); Total Cells Counted 100
[2018-10-22] MEDS: LEVOTHYROXINE 150 MCG TABLET PO SCH (07:05)
[2018-10-22] MEDS: ALBUTEROL/IPRATROPIUM 3 ML NEB RESP TX SCH ×3 (07:37→19:10)
[2018-10-22] MEDS: INSULIN GLARGINE 100 UNIT/ML SUBCUT SCH (09:09)
[2018-10-22] MEDS: POTASSIUM CHLORIDE 20 MEQ/15 ML UDCUP PO SCH ×3 (09:09→22:22)
[2018-10-22] MEDS: INSULIN LISPRO 100 UNIT/ML SUBCUT SCH ×4 (09:10→21:12)
[2018-10-22] MEDS: POLYVINYL ALCOHOL 1.4% OPH SOLN 15 ML BOTTLE RIGHT EYE SCH ×3 (09:10→22:23)
[2018-10-22] MEDS: DILTIAZEM 60 MG TABLET PO SCH ×4 (09:10→22:22)
[2018-10-22] MEDS: METOCLOPRAMIDE 10 MG/10 ML UDCUP PO SCH ×4 (09:10→22:23)
[2018-10-22] MEDS: FLUCONAZOLE 100 MG TABLET PO SCH (09:10)
[2018-10-22] MEDS: DOCUSATE SODIUM 100 MG CAPSULE PO SCH ×2 (09:10→22:23)
[2018-10-22] MEDS: BUDESONIDE/FORMOTEROL 160-4.5 INHALER 6 GM INH SCH ×2 (09:11→22:24)
[2018-10-22] MEDS: ZINC OXIDE PASTE 113 GM TUBE TOP SCH ×2 (09:11→22:24)
[2018-10-22] MEDS: MONTELUKAST 10 MG TABLET PO SCH ×2 (09:11→22:22)
[2018-10-22] MEDS: FUROSEMIDE 40 MG TABLET PO SCH (09:11)
[2018-10-22] MEDS: ACYCLOVIR 200 MG CAPSULE PO SCH (09:11)
[2018-10-22] MEDS: predniSONE 20 MG TABLET PO SCH (09:11)
[2018-10-22] MEDS: SERTRALINE 25 MG TABLET PO SCH (09:11)
[2018-10-22] MEDS: FINASTERIDE 5 MG TABLET PO SCH (09:11)
[2018-10-22] MEDS: PANTOPRAZOLE 40 MG TABLET PO SCH (09:11)
[2018-10-22 14:19] LABS: Free T4 (Free Thyroxine) 1.31 NG/DL (0.76-1.46); Thyroid Stimulating Hormone 3.52 uIU/ml (0.358-3.74)
[2018-10-22] MEDS: APIXABAN 5 MG TABLET PO SCH ×2 (16:31→22:23)
[2018-10-22] MEDS: TAMSULOSIN 0.4 MG CAPSULE PO SCH (17:01)
[2018-10-22] MEDS: SIMVASTATIN 20 MG TABLET PO SCH (22:22)
[2018-10-23 04:52] LABS: Basophils % 0.2 % (0.0-0.8); Hematocrit 37.9 VOL% (42.0-52.0); Hemoglobin 12.5 GM/DL (14.0-18.0); Immature Granulocytes % 3.5 %; Immature Granulocytes Absolute 0.61 #; Lymphocytes # 0.8 10*3/uL (1.4-4.0); Lymphocytes % 4.6 % (21.2-54.2); Mean Corpuscular Hemoglobin 33 PG (27-34); Mean Corpuscular Volume 100.3 FL (87-102); Mean Platelet Volume 10.9 FL (9.6-12.0); Monocytes # 0.5 10*3/uL (0.11-0.8); Monocytes % 2.9 % (1.7-12.7); Neutrophils # 15.6 10*3/uL (1.4-7.4); Neutrophils % 88.8 % (38.7-73.9); Platelet Count 138 T/CUMM (130-400); Red Blood Count 3.78 MC/CUMM (3.8-5.5); White Blood Count 17.6 T/CUMM (4-12)
[2018-10-23 05:02] LABS: Calcium 9.7 MG/DL (8.5-10.1); Osmolality,Calculated 286.4 MOS/KG (273-304); Potassium 3.7 MMOL/L (3.5-5.1)
[2018-10-23 05:15] LABS: Lymphocytes 4 % (20-55); Segmented Neutrophils 93 % (50-85); Total Cells Counted 100
[2018-10-23 05:16] LABS: Hypochromasia 1+; Macrocytosis 1+; Platelet Estimate Adequate
[2018-10-23] MEDS: ALBUTEROL/IPRATROPIUM 3 ML NEB RESP TX SCH ×3 (07:05→19:53)
[2018-10-23] MEDS: INSULIN LISPRO 100 UNIT/ML SUBCUT SCH ×4 (08:20→22:14)
[2018-10-23] MEDS: DILTIAZEM 60 MG TABLET PO SCH ×4 (08:51→22:12)
[2018-10-23] MEDS: METOCLOPRAMIDE 10 MG/10 ML UDCUP PO SCH ×4 (08:51→22:13)
[2018-10-23] MEDS: DOCUSATE SODIUM 100 MG CAPSULE PO SCH ×2 (08:51→22:12)
[2018-10-23] MEDS: FUROSEMIDE 40 MG TABLET PO SCH (08:51)
[2018-10-23] MEDS: MONTELUKAST 10 MG TABLET PO SCH ×2 (08:51→22:12)
[2018-10-23] MEDS: FINASTERIDE 5 MG TABLET PO SCH (08:51)
[2018-10-23] MEDS: SERTRALINE 25 MG TABLET PO SCH (08:51)
[2018-10-23] MEDS: APIXABAN 5 MG TABLET PO SCH ×2 (08:51→22:12)
[2018-10-23] MEDS: FLUCONAZOLE 100 MG TABLET PO SCH (08:51)
[2018-10-23] MEDS: PANTOPRAZOLE 40 MG TABLET PO SCH (08:51)
[2018-10-23] MEDS: INSULIN GLARGINE 100 UNIT/ML SUBCUT SCH (08:52)
[2018-10-23] MEDS: POTASSIUM CHLORIDE 20 MEQ/15 ML UDCUP PO SCH ×2 (08:52→22:14)
[2018-10-23] MEDS: BUDESONIDE/FORMOTEROL 160-4.5 INHALER 6 GM INH SCH ×2 (08:53→22:21)
[2018-10-23] MEDS: ZINC OXIDE PASTE 113 GM TUBE TOP SCH ×2 (08:53→22:21)
[2018-10-23] MEDS: POLYVINYL ALCOHOL 1.4% OPH SOLN 15 ML BOTTLE RIGHT EYE SCH ×3 (08:53→22:19)
[2018-10-23] MEDS: TAMSULOSIN 0.4 MG CAPSULE PO SCH (17:55)
[2018-10-23] MEDS: FERROUS SULFATE 325 MG TABLET PO SCH (17:55)
[2018-10-24 05:10] LABS: Basophils % 0.2 % (0.0-0.8); Hematocrit 37.7 VOL% (42.0-52.0); Hemoglobin 12.1 GM/DL (14.0-18.0); Immature Granulocytes Absolute 0.42 #; Lymphocytes # 0.8 10*3/uL (1.4-4.0); Lymphocytes % 5.9 % (21.2-54.2); Mean Corpuscular HGB Conc 32.1 GM/DL (32-36); Mean Corpuscular Hemoglobin 32 PG (27-34); Mean Corpuscular Volume 100.8 FL (87-102); Mean Platelet Volume 11.2 FL (9.6-12.0); Monocytes # 0.5 10*3/uL (0.11-0.8); Monocytes % 3.5 % (1.7-12.7); Neutrophils # 12.3 10*3/uL (1.4-7.4); Neutrophils % 87.4 % (38.7-73.9); Platelet Count 117 T/CUMM (130-400); Red Blood Count 3.74 MC/CUMM (3.8-5.5); Red Cell Distribution Width 16.1 % (9.3-17.3); White Blood Count 14.1 T/CUMM (4-12)
[2018-10-24 05:28] LABS: Calcium 9.5 MG/DL (8.5-10.1); Osmolality,Calculated 282.4 MOS/KG (273-304); Potassium 3.2 MMOL/L (3.5-5.1)
[2018-10-24] MEDS ORDERED: LEVOTHYROXINE 125 MCG TABLET PO SCH (06:30)
[2018-10-24] MEDS: ALBUTEROL/IPRATROPIUM 3 ML NEB RESP TX SCH (07:22)
[2018-10-24] MEDS: INSULIN LISPRO 100 UNIT/ML SUBCUT SCH ×2 (08:07→10:52)
[2018-10-24] MEDS: METOCLOPRAMIDE 10 MG/10 ML UDCUP PO SCH ×2 (09:07→13:01)
[2018-10-24] MEDS: MONTELUKAST 10 MG TABLET PO SCH (09:07)
[2018-10-24] MEDS: APIXABAN 5 MG TABLET PO SCH (09:07)
[2018-10-24] MEDS: DOCUSATE SODIUM 100 MG CAPSULE PO SCH (09:07)
[2018-10-24] MEDS: FUROSEMIDE 40 MG TABLET PO SCH (09:07)
[2018-10-24] MEDS: POLYVINYL ALCOHOL 1.4% OPH SOLN 15 ML BOTTLE RIGHT EYE SCH (09:08)
[2018-10-24] MEDS: SERTRALINE 25 MG TABLET PO SCH (09:08)
[2018-10-24] MEDS: INSULIN GLARGINE 100 UNIT/ML SUBCUT SCH (09:08)
[2018-10-24] MEDS: POTASSIUM CHLORIDE 20 MEQ/15 ML UDCUP PO SCH (09:08)
[2018-10-24] MEDS: FINASTERIDE 5 MG TABLET PO SCH (09:08)
[2018-10-24] MEDS: DILTIAZEM 60 MG TABLET PO SCH ×2 (09:08→13:01)
[2018-10-24] MEDS: FLUCONAZOLE 100 MG TABLET PO SCH (09:08)
[2018-10-24] MEDS: PANTOPRAZOLE 40 MG TABLET PO SCH (09:08)
[2018-10-24] MEDS: ZINC OXIDE PASTE 113 GM TUBE TOP SCH (09:08)
[2018-10-24] MEDS: BUDESONIDE/FORMOTEROL 160-4.5 INHALER 6 GM INH SCH (09:09)
[2018-10-24 11:22] VITALS: BP 100/59
[2018-10-29 15:16] LABS: ACh Receptor (Muscle) Binding 0 nmol/L (<=0.02); ACh Receptor (Muscle) Modulati 0 %
== END 2018-10-24 13:00 | disposition swing bed (61) | DRG 64 ==
LOC: EDUNIT# → EDBD → N.ED 11:06 → SUATTDRO 13:53 → N.EDINP 13:53 → N.TELES 16:55
PROVIDERS: ADMIT Internal Medicine; ATTEND Internal Medicine

== ENCOUNTER 2018-11-09 00:42 | Inpatient (IN) ==
[2018-11-09] MEDS ORDERED: FUROSEMIDE 40 MG/4 ML VIAL ONE (01:01)
[2018-11-09] MEDS ORDERED: METOPROLOL TARTRATE 5 MG/5 ML VIAL IV ONE ×2 (01:01→14:06)
[2018-11-09] MEDS ORDERED: METOPROLOL TARTRATE 5 MG/5 ML VIAL IV STA (01:01)
[2018-11-09] MEDS ORDERED: ALBUTEROL/IPRATROPIUM 3 ML NEB RESP TX STA (01:04)
[2018-11-09] MEDS ORDERED: FUROSEMIDE 40 MG/4 ML VIAL IV STA (01:04)
[2018-11-09] MEDS ORDERED: LEVOFLOXACIN INJ 750 MG in PREMIX 1 EACH IV STA (01:12)
[2018-11-09 01:17] LABS: Albumin 2.1 G/DL (3.4-5.0); Bilirubin,Total 0.7 MG/DL (0.2-1.0); Calcium 9.1 MG/DL (8.5-10.1); Osmolality,Calculated 279.7 MOS/KG (273-304); Potassium 4.3 MMOL/L (3.5-5.1); Total Protein 5.2 G/DL (6.4-8.3)
[2018-11-09 01:23] LABS: Troponin I 0.043 NG/ML (0.00-0.045)
[2018-11-09] MEDS ORDERED: VANCOMYCIN INJ 1,000 MG in SODIUM CHLORIDE 0.9% 250 ML IV STA (01:33)
[2018-11-09] MEDS ORDERED: PIPERACILLIN/TAZOBACTAM 3,375 MG in SODIUM CHLORIDE 0.9% 100 ML IV STA (01:33)
[2018-11-09 01:41] LABS: Basophils % 0.3 % (0.0-0.8); Hematocrit 31.7 VOL% (42.0-52.0); Immature Granulocytes % 0.6 %; Immature Granulocytes Absolute 0.02 #; Lymphocytes # 0.7 10*3/uL (1.4-4.0); Lymphocytes % 20.9 % (21.2-54.2); Mean Corpuscular HGB Conc 31.5 GM/DL (32-36); Mean Corpuscular Hemoglobin 32 PG (27-34); Mean Corpuscular Volume 102.3 FL (87-102); Mean Platelet Volume 10.4 FL (9.6-12.0); Monocytes # 0.2 10*3/uL (0.11-0.8); Monocytes % 6.4 % (1.7-12.7); Neutrophils # 2.2 10*3/uL (1.4-7.4); Neutrophils % 71.8 % (38.7-73.9); Platelet Count 103 T/CUMM (130-400); Red Cell Distribution Width 17.7 % (9.3-17.3); White Blood Count 3.1 T/CUMM (4-12)
[2018-11-09 01:45] LABS: INR 1.1; PT Patient Result 12.4 SECS; Partial Thromboplastin Time 34.4 SECS (0-40)
[2018-11-09] MEDS ORDERED: SODIUM CHLORIDE 0.9% 500 ML IV ONE (02:16)
[2018-11-09] MEDS ORDERED: NICOTINE 21 MG/24 HR PATCH TRANSDERM PRN (02:16)
[2018-11-09] MEDS ORDERED: diphenhydrAMINE CAP 25 MG CAPSULE PO PRN (02:16)
[2018-11-09] MEDS ORDERED: ALBUTEROL 2.5 MG/3 ML NEB RESP TX PRN (02:16)
[2018-11-09 02:22] LABS: Apearance,Urine Slightly Hazy (Clear); Bacteria,Urine Occasional /HPF (Few); Bilirubin,Urine Negative (Negative); Blood, Urine Negative (Negative); Glucose,Urine (UA) Negative (Negative); Hyaline Casts,Urine 1 /LPF (0-3); Ketones,Urine Negative (Negative); Mucus,Urine Occasional /LPF (Occasional); Nitrite,Urine Negative (Negative); Protein,Urine Negative; RBC,Urine 3 /HPF (0-4); Urine Color Yellow (Yellow); Urine Specific Gravity 1.013 (1.001-1.035); Urine Urobilinogen < 2.0 EU/DL (0.2-1.0); WBC,Urine 3 /HPF (0-6)
[2018-11-09 02:43] LABS: Allen Test Positive
[2018-11-09 02:44] LABS: ABG Base Excess -2.8 MMOL/L (-2.5-2.5); ABG Oxygen Saturation 95.9 % (95-100); ABG PCO2 27.3 MM HG (35-48); ABG PH 7.468 (7.35-7.45); ABG PO2 76.2 MM HG (80-95); ABG TCO2 17.9 MMOL/L (23-27)
[2018-11-09] MEDS: ALBUTEROL/IPRATROPIUM 3 ML NEB RESP TX SCH ×5 (03:00→20:37)
[2018-11-09] MEDS ORDERED: ONDANSETRON 4 MG/2 ML VIAL IV PRN (03:45)
[2018-11-09 04:53] LABS: Platelet Estimate Decreased; Polychromasia Few
[2018-11-09] MEDS: AZITHROMYCIN INJ 500 MG in SODIUM CHLORIDE 0.9% 250 ML IV SCH (06:14)
[2018-11-09] MEDS ORDERED: SODIUM CHLORIDE 0.9% 1,000 ML IV ONE (08:00)
[2018-11-09] MEDS ORDERED: NOREPINEPHRINE 4 MG/4 ML VIAL IV ONE ×2 (09:02→09:03)
[2018-11-09] MEDS: PHENYLEPHRINE DRIP 40 MG/250 ML PREMIX IV PRN (09:26)
[2018-11-09] MEDS: SODIUM CHLORIDE 0.9% 1,000 ML IV SCH ×3 (09:36→22:18)
[2018-11-09] MEDS: PIPERACILLIN/TAZOBACTAM 3,375 MG in SODIUM CHLORIDE 0.9% 100 ML IV SCH ×2 (12:17→18:25)
[2018-11-09] MEDS: PANTOPRAZOLE 40 MG VIAL IV SCH ×2 (12:23→22:17)
[2018-11-09] MEDS: methylPREDNISolone SOD SUC 125 MG/2 ML VIAL IV SCH ×2 (13:40→22:18)
[2018-11-09] MEDS ORDERED: METOPROLOL TARTRATE 5 MG/5 ML VIAL IV SCH ×2 (14:05→14:57)
[2018-11-09] MEDS ORDERED: METOPROLOL TARTRATE 5 MG/5 ML VIAL IV PRN (15:31)
[2018-11-09] MEDS: MORPHINE 4 MG/1 ML VIAL IV PRN (21:10)
[2018-11-10] MEDS: PHENYLEPHRINE DRIP 40 MG/250 ML PREMIX IV PRN ×3 (00:22→18:41)
[2018-11-10] MEDS: ALBUTEROL/IPRATROPIUM 3 ML NEB RESP TX SCH ×7 (00:28→23:09)
[2018-11-10] MEDS: MORPHINE 4 MG/1 ML VIAL IV PRN ×2 (01:10→05:25)
[2018-11-10] MEDS: VANCOMYCIN INJ 1,000 MG in SODIUM CHLORIDE 0.9% 250 ML IV SCH (01:44)
[2018-11-10] MEDS: PIPERACILLIN/TAZOBACTAM 3,375 MG in SODIUM CHLORIDE 0.9% 100 ML IV SCH ×3 (02:59→18:36)
[2018-11-10 03:06] LABS: Allen Test Positive
[2018-11-10 03:07] LABS: ABG Base Excess -5.5 MMOL/L (-2.5-2.5); ABG HCO3 19.7 MMOL/L (20-26); ABG PCO2 23.3 MM HG (35-48); ABG PH 7.467 (7.35-7.45); ABG PO2 57.2 MM HG (80-95); ABG TCO2 15.3 MMOL/L (23-27)
[2018-11-10 04:21] LABS: Basophils % 0.2 % (0.0-0.8); Hematocrit 32.6 VOL% (42.0-52.0); Hemoglobin 10.3 GM/DL (14.0-18.0); Immature Granulocytes % 1.1 %; Immature Granulocytes Absolute 0.06 #; Lymphocytes # 0.4 10*3/uL (1.4-4.0); Mean Corpuscular HGB Conc 31.6 GM/DL (32-36); Mean Corpuscular Hemoglobin 32 PG (27-34); Mean Corpuscular Volume 102.2 FL (87-102); Mean Platelet Volume 10.3 FL (9.6-12.0); Monocytes # 0.4 10*3/uL (0.11-0.8); Monocytes % 6.3 % (1.7-12.7); Neutrophils # 4.7 10*3/uL (1.4-7.4); Neutrophils % 85.4 % (38.7-73.9); Platelet Count 148 T/CUMM (130-400); Red Blood Count 3.19 MC/CUMM (3.8-5.5); Red Cell Distribution Width 17.5 % (9.3-17.3); White Blood Count 5.5 T/CUMM (4-12)
[2018-11-10 04:37] LABS: Calcium 8.8 MG/DL (8.5-10.1); Osmolality,Calculated 287.3 MOS/KG (273-304); Potassium 3.9 MMOL/L (3.5-5.1)
[2018-11-10 05:07] LABS: Band Neutrophils 11 % (0-10); Lymphocytes 8 % (20-55); Segmented Neutrophils 79 % (50-85); Total Cells Counted 100
[2018-11-10 05:08] LABS: Atypical Lymphocytes Few; Macrocytosis Slight
[2018-11-10] MEDS: AZITHROMYCIN INJ 500 MG in SODIUM CHLORIDE 0.9% 250 ML IV SCH (06:33)
[2018-11-10] MEDS: methylPREDNISolone SOD SUC 125 MG/2 ML VIAL IV SCH ×3 (06:43→23:34)
[2018-11-10] MEDS ORDERED: FUROSEMIDE 20 MG/2 ML VIAL ONE (09:19)
[2018-11-10] MEDS: PANTOPRAZOLE 40 MG VIAL IV SCH ×2 (09:23→23:34)
[2018-11-10] MEDS: FUROSEMIDE 40 MG/4 ML VIAL IV SCH (09:26)
[2018-11-10] MEDS ORDERED: DILTIAZEM 50 MG/10 ML VIAL IV ONE (09:40)
[2018-11-10] MEDS: dilTIAZem Drip 125 MG/125 ML PREMIX IV SCH ×2 (10:02→19:50)
[2018-11-10] MEDS: SODIUM CHLORIDE 0.9% 1,000 ML IV SCH (14:01)
[2018-11-11] MEDS: VANCOMYCIN INJ 1,000 MG in SODIUM CHLORIDE 0.9% 250 ML IV SCH (02:52)
[2018-11-11] MEDS: ALBUTEROL/IPRATROPIUM 3 ML NEB RESP TX SCH ×6 (03:36→23:09)
[2018-11-11] MEDS: PIPERACILLIN/TAZOBACTAM 3,375 MG in SODIUM CHLORIDE 0.9% 100 ML IV SCH ×3 (03:55→18:16)
[2018-11-11] MEDS: AZITHROMYCIN INJ 500 MG in SODIUM CHLORIDE 0.9% 250 ML IV SCH (06:25)
[2018-11-11] MEDS: methylPREDNISolone SOD SUC 125 MG/2 ML VIAL IV SCH ×2 (06:25→18:16)
[2018-11-11] MEDS: dilTIAZem Drip 125 MG/125 ML PREMIX IV SCH (07:44)
[2018-11-11] MEDS: PHENYLEPHRINE DRIP 40 MG/250 ML PREMIX IV PRN (07:58)
[2018-11-11] MEDS: PANTOPRAZOLE 40 MG VIAL IV SCH (08:00)
[2018-11-11] MEDS: FUROSEMIDE 40 MG/4 ML VIAL IV SCH (08:00)
[2018-11-11] MEDS: METOPROLOL TARTRATE 25 MG TABLET PO SCH ×2 (09:11→20:06)
[2018-11-11] MEDS: DILTIAZEM 30 MG TABLET PO SCH ×3 (09:11→20:06)
[2018-11-12] MEDS: VANCOMYCIN INJ 1,000 MG in SODIUM CHLORIDE 0.9% 250 ML IV SCH ×2 (00:29→13:32)
[2018-11-12] MEDS: ALBUTEROL/IPRATROPIUM 3 ML NEB RESP TX SCH ×5 (02:46→19:25)
[2018-11-12] MEDS: PIPERACILLIN/TAZOBACTAM 3,375 MG in SODIUM CHLORIDE 0.9% 100 ML IV SCH ×3 (03:14→20:40)
[2018-11-12 04:54] LABS: Basophils % 0.5 % (0.0-0.8); Hematocrit 28.7 VOL% (42.0-52.0); Hemoglobin 9.1 GM/DL (14.0-18.0); Immature Granulocytes % 9.5 %; Immature Granulocytes Absolute 0.37 #; Lymphocytes # 0.4 10*3/uL (1.4-4.0); Lymphocytes % 10.8 % (21.2-54.2); Mean Corpuscular HGB Conc 31.7 GM/DL (32-36); Mean Corpuscular Hemoglobin 32 PG (27-34); Mean Corpuscular Volume 100.7 FL (87-102); Monocytes # 0.2 10*3/uL (0.11-0.8); Monocytes % 5.9 % (1.7-12.7); NRBC # 0.03 10*3/uL; Neutrophils # 2.9 10*3/uL (1.4-7.4); Neutrophils % 73.3 % (38.7-73.9); Platelet Count 124 T/CUMM (130-400); Red Blood Count 2.85 MC/CUMM (3.8-5.5); Red Cell Distribution Width 17.3 % (9.3-17.3); White Blood Count 3.9 T/CUMM (4-12)
[2018-11-12 05:03] LABS: Osmolality,Calculated 305.7 MOS/KG (273-304); Potassium 2.9 MMOL/L (3.5-5.1)
[2018-11-12 05:37] LABS: Anisocytosis 1+; Lymphocytes 7 % (20-55); Macrocytosis 1+; Metamyelocytes 7 %; Platelet Estimate Decreased; Segmented Neutrophils 85 % (50-85); Total Cells Counted 100
[2018-11-12] MEDS: methylPREDNISolone SOD SUC 125 MG/2 ML VIAL IV SCH ×2 (05:59→17:51)
[2018-11-12] MEDS: METOPROLOL TARTRATE 25 MG TABLET PO SCH ×2 (08:19→20:42)
[2018-11-12] MEDS: FUROSEMIDE 40 MG/4 ML VIAL IV SCH (08:19)
[2018-11-12] MEDS: DILTIAZEM 30 MG TABLET PO SCH (08:19)
[2018-11-12] MEDS: POTASSIUM CHLORIDE 20 MEQ TABLET PO SCH ×2 (08:19→11:42)
[2018-11-12] MEDS: PANTOPRAZOLE 40 MG TABLET PO SCH (08:20)
[2018-11-12] MEDS: INSULIN REGULAR 100 UNIT/ML SUBCUT SCH ×3 (11:43→20:44)
[2018-11-12] MEDS ORDERED: DILTIAZEM 30 MG TABLET PO SCH (15:00)
[2018-11-12] MEDS: DILTIAZEM CD 120 MG CAPSULE PO SCH (20:43)
[2018-11-13] MEDS: ALBUTEROL/IPRATROPIUM 3 ML NEB RESP TX SCH ×7 (00:19→23:20)
[2018-11-13] MEDS: VANCOMYCIN INJ 1,000 MG in SODIUM CHLORIDE 0.9% 250 ML IV SCH ×2 (01:41→14:26)
[2018-11-13] MEDS: PIPERACILLIN/TAZOBACTAM 3,375 MG in SODIUM CHLORIDE 0.9% 100 ML IV SCH ×3 (02:57→18:11)
[2018-11-13] MEDS: methylPREDNISolone SOD SUC 125 MG/2 ML VIAL IV SCH ×2 (05:50→17:50)
[2018-11-13 07:48] LABS: Basophils % 0.4 % (0.0-0.8); Hematocrit 30.8 VOL% (42.0-52.0); Hemoglobin 9.8 GM/DL (14.0-18.0); Immature Granulocytes % 12.4 %; Immature Granulocytes Absolute 0.89 #; Lymphocytes # 0.5 10*3/uL (1.4-4.0); Lymphocytes % 6.3 % (21.2-54.2); Mean Corpuscular HGB Conc 31.8 GM/DL (32-36); Mean Corpuscular Hemoglobin 32 PG (27-34); Mean Corpuscular Volume 100.7 FL (87-102); Mean Platelet Volume 10.1 FL (9.6-12.0); Monocytes # 0.4 10*3/uL (0.11-0.8); Monocytes % 5.9 % (1.7-12.7); NRBC # 0.08 10*3/uL; Neutrophils # 5.4 10*3/uL (1.4-7.4); Red Blood Count 3.06 MC/CUMM (3.8-5.5); Red Cell Distribution Width 17.2 % (9.3-17.3)
[2018-11-13 07:50] LABS: Platelet Count 151 T/CUMM (130-400); White Blood Count 7.2 T/CUMM (4-12)
[2018-11-13 07:57] LABS: Calcium 9.4 MG/DL (8.5-10.1); Osmolality,Calculated 305.4 MOS/KG (273-304); Potassium 3.4 MMOL/L (3.5-5.1)
[2018-11-13 08:04] LABS: Band Neutrophils 3 % (0-10); Hypochromasia 1+; Lymphocytes 5 % (20-55); Platelet Estimate Adequate; Segmented Neutrophils 87 % (50-85); Total Cells Counted 100
[2018-11-13] MEDS: METOPROLOL TARTRATE 25 MG TABLET PO SCH ×2 (11:00→22:27)
[2018-11-13] MEDS: DILTIAZEM CD 120 MG CAPSULE PO SCH ×2 (11:00→22:24)
[2018-11-13] MEDS: PANTOPRAZOLE 40 MG TABLET PO SCH (11:00)
[2018-11-13] MEDS: FUROSEMIDE 40 MG/4 ML VIAL IV SCH (11:00)
[2018-11-13] MEDS: INSULIN REGULAR 100 UNIT/ML SUBCUT SCH ×4 (11:51→22:23)
[2018-11-13] MEDS: SODIUM CHLORIDE 0.9% 1,000 ML IV SCH (11:58)
[2018-11-14] MEDS: VANCOMYCIN INJ 1,000 MG in SODIUM CHLORIDE 0.9% 250 ML IV SCH ×3 (01:41→17:16)
[2018-11-14] MEDS: PIPERACILLIN/TAZOBACTAM 3,375 MG in SODIUM CHLORIDE 0.9% 100 ML IV SCH ×3 (02:54→18:01)
[2018-11-14] MEDS: ALBUTEROL/IPRATROPIUM 3 ML NEB RESP TX SCH ×6 (03:12→22:37)
[2018-11-14 03:13] LABS: Basophils # 0.1 10*3/uL (0.0-0.2); Basophils % 0.8 % (0.0-0.8); Hematocrit 29.8 VOL% (42.0-52.0); Hemoglobin 9.4 GM/DL (14.0-18.0); Immature Granulocytes % 21.6 %; Immature Granulocytes Absolute 1.38 #; Lymphocytes # 0.4 10*3/uL (1.4-4.0); Lymphocytes % 6.9 % (21.2-54.2); Mean Corpuscular HGB Conc 31.5 GM/DL (32-36); Mean Corpuscular Hemoglobin 32 PG (27-34); Mean Corpuscular Volume 100.3 FL (87-102); Mean Platelet Volume 10.1 FL (9.6-12.0); Monocytes # 0.2 10*3/uL (0.11-0.8); Monocytes % 3.8 % (1.7-12.7); NRBC # 0.13 10*3/uL; Neutrophils # 4.3 10*3/uL (1.4-7.4); Neutrophils % 66.9 % (38.7-73.9); Platelet Count 152 T/CUMM (130-400); Red Blood Count 2.97 MC/CUMM (3.8-5.5); Red Cell Distribution Width 16.9 % (9.3-17.3); White Blood Count 6.4 T/CUMM (4-12)
[2018-11-14 03:29] LABS: Osmolality,Calculated 302.4 MOS/KG (273-304); Potassium 2.8 MMOL/L (3.5-5.1)
[2018-11-14 04:09] LABS: Lymphocytes 2 % (20-55); Metamyelocytes 1 %; Platelet Estimate Adequate; Polychromasia Few; Segmented Neutrophils 97 % (50-85); Total Cells Counted 100
[2018-11-14] MEDS: POTASSIUM CHLORIDE 20 MEQ TABLET PO PRN ×4 (06:16→11:48)
[2018-11-14] MEDS: methylPREDNISolone SOD SUC 125 MG/2 ML VIAL IV SCH ×2 (06:22→17:01)
[2018-11-14] MEDS ORDERED: POTASSIUM CHLORIDE 20 MEQ TABLET PO ONE (09:04)
[2018-11-14] MEDS: PANTOPRAZOLE 40 MG TABLET PO SCH (09:05)
[2018-11-14] MEDS: METOPROLOL TARTRATE 25 MG TABLET PO SCH ×2 (09:05→21:50)
[2018-11-14] MEDS: DILTIAZEM CD 120 MG CAPSULE PO SCH ×2 (09:06→21:50)
[2018-11-14] MEDS: FUROSEMIDE 40 MG/4 ML VIAL IV SCH (09:07)
[2018-11-14] MEDS: INSULIN REGULAR 100 UNIT/ML SUBCUT SCH ×4 (09:07→21:51)
[2018-11-14] MEDS ORDERED: MAGNESIUM SULF RIDER 2 GM in PREMIX 1 EACH IV ONE (14:30)
[2018-11-14] MEDS: POTASSIUM CHLORIDE RIDER 10 MEQ in PREMIX 1 EACH IV PRN ×2 (20:05→21:13)
[2018-11-14] MEDS ORDERED: INSULIN GLARGINE 100 UNIT/ML SUBCUT SCH (21:00)
[2018-11-15 01:02] LABS: Calcium 8.9 MG/DL (8.5-10.1); Osmolality,Calculated 302.7 MOS/KG (273-304); Potassium 3.6 MMOL/L (3.5-5.1)
[2018-11-15 01:19] LABS: Basophils % 0.4 % (0.0-0.8); Hematocrit 29.9 VOL% (42.0-52.0); Hemoglobin 9.6 GM/DL (14.0-18.0); Immature Granulocytes % 26.7 %; Immature Granulocytes Absolute 2.01 #; Lymphocytes # 0.3 10*3/uL (1.4-4.0); Mean Corpuscular HGB Conc 32.1 GM/DL (32-36); Mean Corpuscular Hemoglobin 32 PG (27-34); Mean Platelet Volume 10.6 FL (9.6-12.0); Monocytes # 0.3 10*3/uL (0.11-0.8); Monocytes % 3.3 % (1.7-12.7); NRBC # 0.15 10*3/uL; Neutrophils % 65.6 % (38.7-73.9); Platelet Count 202 T/CUMM (130-400); Red Blood Count 2.99 MC/CUMM (3.8-5.5); Red Cell Distribution Width 17.2 % (9.3-17.3); White Blood Count 7.5 T/CUMM (4-12)
[2018-11-15] MEDS: ALBUTEROL/IPRATROPIUM 3 ML NEB RESP TX SCH ×6 (02:21→23:21)
[2018-11-15] MEDS: PIPERACILLIN/TAZOBACTAM 3,375 MG in SODIUM CHLORIDE 0.9% 100 ML IV SCH ×3 (03:19→21:30)
[2018-11-15 03:59] LABS: Band Neutrophils 7 % (0-10); Lymphocytes 5 % (20-55); Metamyelocytes 8 %; Myelocytes 2 %; Nucleated Red Blood Cells 3 (0-5); Platelet Estimate Normal; Segmented Neutrophils 72 % (50-85); Total Cells Counted 100
[2018-11-15 04:01] LABS: Anisocytosis Slight; Macrocytosis Slight
[2018-11-15] MEDS: methylPREDNISolone SOD SUC 125 MG/2 ML VIAL IV SCH ×2 (05:44→17:21)
[2018-11-15] MEDS: LEVOTHYROXINE 125 MCG TABLET PO SCH (05:45)
[2018-11-15] MEDS: METOPROLOL TARTRATE 25 MG TABLET PO SCH ×2 (08:35→21:49)
[2018-11-15] MEDS: FUROSEMIDE 40 MG/4 ML VIAL IV SCH (08:36)
[2018-11-15] MEDS: DILTIAZEM CD 120 MG CAPSULE PO SCH ×2 (08:36→21:30)
[2018-11-15] MEDS: PANTOPRAZOLE 40 MG TABLET PO SCH (08:36)
[2018-11-15] MEDS: INSULIN REGULAR 100 UNIT/ML SUBCUT SCH ×4 (08:43→21:30)
[2018-11-15] MEDS: VANCOMYCIN INJ 1,000 MG in SODIUM CHLORIDE 0.9% 250 ML IV SCH (11:22)
[2018-11-15] MEDS ORDERED: LORazepam 2 MG/1 ML VIAL IV PRN (15:25)
[2018-11-15] MEDS ORDERED: TUBERCULIN SKIN TEST 0.1 ML SYRINGE INTRADERM ONE (15:57)
[2018-11-15] MEDS: INSULIN GLARGINE 100 UNIT/ML SUBCUT SCH (21:30)
[2018-11-16] MEDS: ALBUTEROL/IPRATROPIUM 3 ML NEB RESP TX SCH ×6 (03:02→23:31)
[2018-11-16] MEDS: PIPERACILLIN/TAZOBACTAM 3,375 MG in SODIUM CHLORIDE 0.9% 100 ML IV SCH ×2 (04:45→12:20)
[2018-11-16] MEDS: methylPREDNISolone SOD SUC 125 MG/2 ML VIAL IV SCH ×2 (05:44→17:14)
[2018-11-16] MEDS: LEVOTHYROXINE 125 MCG TABLET PO SCH (05:44)
[2018-11-16] MEDS: FUROSEMIDE 40 MG/4 ML VIAL IV SCH (07:55)
[2018-11-16] MEDS: METOPROLOL TARTRATE 25 MG TABLET PO SCH ×2 (09:38→21:39)
[2018-11-16] MEDS: DILTIAZEM CD 120 MG CAPSULE PO SCH ×2 (09:39→21:39)
[2018-11-16] MEDS: PANTOPRAZOLE 40 MG TABLET PO SCH (09:40)
[2018-11-16] MEDS: INSULIN REGULAR 100 UNIT/ML SUBCUT SCH ×4 (09:40→21:40)
[2018-11-16] MEDS: VANCOMYCIN INJ 1,000 MG in SODIUM CHLORIDE 0.9% 250 ML IV SCH (10:15)
[2018-11-16] MEDS: POLYETHYLENE GLYCOL POWDER 17 GM PACK PO SCH (12:25)
[2018-11-16] MEDS: methylPREDNISolone SOD SUC 40 MG/1 ML VIAL IV SCH (18:54)
[2018-11-16] MEDS: INSULIN GLARGINE 100 UNIT/ML SUBCUT SCH (21:30)
[2018-11-17] MEDS: ALBUTEROL/IPRATROPIUM 3 ML NEB RESP TX SCH ×6 (03:34→23:08)
[2018-11-17] MEDS: methylPREDNISolone SOD SUC 40 MG/1 ML VIAL IV SCH (06:22)
[2018-11-17] MEDS: LEVOTHYROXINE 125 MCG TABLET PO SCH (06:23)
[2018-11-17] MEDS: FUROSEMIDE 40 MG/4 ML VIAL IV SCH (09:40)
[2018-11-17] MEDS: INSULIN REGULAR 100 UNIT/ML SUBCUT SCH ×4 (10:00→21:00)
[2018-11-17] MEDS: POLYETHYLENE GLYCOL POWDER 17 GM PACK PO SCH (10:00)
[2018-11-17] MEDS: DILTIAZEM CD 120 MG CAPSULE PO SCH ×2 (10:01→21:00)
[2018-11-17] MEDS: PANTOPRAZOLE 40 MG TABLET PO SCH (10:01)
[2018-11-17] MEDS: METOPROLOL TARTRATE 25 MG TABLET PO SCH ×2 (10:01→21:00)
[2018-11-17] MEDS: LEVOFLOXACIN 750 MG TABLET PO SCH (10:01)
[2018-11-17] MEDS: INSULIN GLARGINE 100 UNIT/ML SUBCUT SCH (21:00)
[2018-11-18] MEDS: ALBUTEROL/IPRATROPIUM 3 ML NEB RESP TX SCH ×6 (04:20→23:50)
[2018-11-18] MEDS: LEVOTHYROXINE 125 MCG TABLET PO SCH (05:50)
[2018-11-18] MEDS: methylPREDNISolone SOD SUC 40 MG/1 ML VIAL IV SCH ×3 (05:54→18:13)
[2018-11-18] MEDS: DILTIAZEM CD 120 MG CAPSULE PO SCH ×2 (08:54→21:33)
[2018-11-18] MEDS: METOPROLOL TARTRATE 25 MG TABLET PO SCH ×2 (08:54→21:33)
[2018-11-18] MEDS: PANTOPRAZOLE 40 MG TABLET PO SCH (08:55)
[2018-11-18] MEDS: FUROSEMIDE 40 MG/4 ML VIAL IV SCH (08:55)
[2018-11-18] MEDS: LEVOFLOXACIN 750 MG TABLET PO SCH (08:55)
[2018-11-18] MEDS: POLYETHYLENE GLYCOL POWDER 17 GM PACK PO SCH (08:59)
[2018-11-18] MEDS: INSULIN REGULAR 100 UNIT/ML SUBCUT SCH ×4 (09:00→21:33)
[2018-11-18] MEDS: DORNASE ALFA 2.5 MG/2.5 ML VIAL RESP TX SCH ×2 (11:48→19:17)
[2018-11-18] MEDS: INSULIN GLARGINE 100 UNIT/ML SUBCUT SCH (21:34)
[2018-11-19] MEDS: ALBUTEROL/IPRATROPIUM 3 ML NEB RESP TX SCH ×5 (03:32→19:07)
[2018-11-19 05:12] LABS: Basophils # 0.1 10*3/uL (0.0-0.2); Basophils % 0.4 % (0.0-0.8); Hematocrit 35.1 VOL% (42.0-52.0); Hemoglobin 11.2 GM/DL (14.0-18.0); Immature Granulocytes % 9.4 %; Immature Granulocytes Absolute 1.48 #; Lymphocytes # 0.3 10*3/uL (1.4-4.0); Lymphocytes % 2.2 % (21.2-54.2); Mean Corpuscular HGB Conc 31.9 GM/DL (32-36); Mean Corpuscular Hemoglobin 32 PG (27-34); Mean Corpuscular Volume 100.9 FL (87-102); Mean Platelet Volume 10.2 FL (9.6-12.0); Monocytes # 0.3 10*3/uL (0.11-0.8); Monocytes % 2.2 % (1.7-12.7); NRBC # 0.04 10*3/uL; Neutrophils # 13.5 10*3/uL (1.4-7.4); Neutrophils % 85.8 % (38.7-73.9); Platelet Count 217 T/CUMM (130-400); Red Blood Count 3.48 MC/CUMM (3.8-5.5); Red Cell Distribution Width 17.7 % (9.3-17.3); White Blood Count 15.8 T/CUMM (4-12)
[2018-11-19 05:22] LABS: Calcium 9.2 MG/DL (8.5-10.1); Osmolality,Calculated 292.1 MOS/KG (273-304)
[2018-11-19 05:35] LABS: Band Neutrophils 1 % (0-10); Hypochromasia Slight; Lymphocytes 2 % (20-55); Macrocytosis Slight; Ovalocytes Slight; Platelet Estimate Adequate; Segmented Neutrophils 96 % (50-85); Total Cells Counted 100
[2018-11-19 05:36] LABS: Calcium 9.4 MG/DL (8.5-10.1); Osmolality,Calculated 288.4 MOS/KG (273-304)
[2018-11-19] MEDS: POTASSIUM CHLORIDE 20 MEQ TABLET PO PRN ×4 (05:50→12:20)
[2018-11-19] MEDS: LEVOTHYROXINE 125 MCG TABLET PO SCH (05:50)
[2018-11-19] MEDS: methylPREDNISolone SOD SUC 40 MG/1 ML VIAL IV SCH ×2 (05:50→17:30)
[2018-11-19] MEDS: DORNASE ALFA 2.5 MG/2.5 ML VIAL RESP TX SCH ×2 (07:38→19:07)
[2018-11-19] MEDS: DILTIAZEM CD 120 MG CAPSULE PO SCH ×2 (08:11→21:36)
[2018-11-19] MEDS: METOPROLOL TARTRATE 25 MG TABLET PO SCH ×2 (08:12→21:38)
[2018-11-19] MEDS: FUROSEMIDE 40 MG TABLET PO SCH (08:12)
[2018-11-19] MEDS: PANTOPRAZOLE 40 MG TABLET PO SCH (08:12)
[2018-11-19] MEDS: LEVOFLOXACIN 750 MG TABLET PO SCH (08:12)
[2018-11-19] MEDS: POLYETHYLENE GLYCOL POWDER 17 GM PACK PO SCH (08:13)
[2018-11-19] MEDS: INSULIN REGULAR 100 UNIT/ML SUBCUT SCH ×4 (08:13→21:41)
[2018-11-19] MEDS ORDERED: POTASSIUM CHLORIDE 20 MEQ TABLET PO ONE (09:00)
[2018-11-19] MEDS: ASCORBIC ACID 500 MG TABLET PO SCH (21:40)
[2018-11-19] MEDS: INSULIN GLARGINE 100 UNIT/ML SUBCUT SCH (21:43)
[2018-11-20] MEDS: ALBUTEROL/IPRATROPIUM 3 ML NEB RESP TX SCH ×4 (00:24→10:47)
[2018-11-20 06:00] LABS: Calcium 9.9 MG/DL (8.5-10.1); Potassium 4.2 MMOL/L (3.5-5.1)
[2018-11-20] MEDS: methylPREDNISolone SOD SUC 40 MG/1 ML VIAL IV SCH (06:42)
[2018-11-20] MEDS: LEVOTHYROXINE 125 MCG TABLET PO SCH (06:45)
[2018-11-20] MEDS: DORNASE ALFA 2.5 MG/2.5 ML VIAL RESP TX SCH (07:31)
[2018-11-20] MEDS: POLYETHYLENE GLYCOL POWDER 17 GM PACK PO SCH (08:51)
[2018-11-20] MEDS: METOPROLOL TARTRATE 25 MG TABLET PO SCH (08:52)
[2018-11-20] MEDS: FUROSEMIDE 40 MG TABLET PO SCH (08:53)
[2018-11-20] MEDS: ASCORBIC ACID 500 MG TABLET PO SCH (08:53)
[2018-11-20] MEDS: DILTIAZEM CD 120 MG CAPSULE PO SCH (08:53)
[2018-11-20] MEDS: LEVOFLOXACIN 750 MG TABLET PO SCH (08:53)
[2018-11-20] MEDS: PANTOPRAZOLE 40 MG TABLET PO SCH (09:00)
[2018-11-20] MEDS: INSULIN REGULAR 100 UNIT/ML SUBCUT SCH ×2 (09:00→12:09)
[2018-11-20] MEDS ORDERED: POTASSIUM CHLORIDE 20 MEQ/15 ML UDCUP PO SCH (09:00)
[2018-11-20 12:06] VITALS: BP 114/79
== END 2018-11-20 14:35 | DRG 871 ==
LOC: EDUNIT# → EDBD → N.ED 00:42 → SUPCPDRO 02:16 → SUATTDRO 02:16 → N.EDINP 02:16 → N.ICU 07:59 → N.TELES 11-13 12:42
PROVIDERS: ADMIT Hospitalist; ATTEND Internal Medicine

== ENCOUNTER 2019-08-22 04:29 | Inpatient (IN) ==
[2019-08-22] MEDS ORDERED: flumazeniL 0.5 MG/5 ML VIAL IV ONE (04:37)
[2019-08-22] MEDS ORDERED: flumazeniL 0.5 MG/5 ML VIAL IV PRN (04:41)
[2019-08-22] MEDS ORDERED: DILTIAZEM 25 MG/5 ML VIAL IV ONE (04:42)
[2019-08-22] MEDS ORDERED: DILTIAZEM 50 MG/10 ML VIAL IV ONE (04:42)
[2019-08-22] MEDS ORDERED: dilTIAZem Drip 125 MG/125 ML PREMIX IV SCH (04:48)
[2019-08-22 04:59] LABS: Basophils # 0.1 10*3/uL (0.0-0.2); Basophils % 0.4 % (0.0-0.8); Eosinophils % 0.2 % (0.00-10.9); Hematocrit 39.8 VOL% (42.0-52.0); Hemoglobin 12.4 GM/DL (14.0-18.0); Immature Granulocytes % 1.3 %; Immature Granulocytes Absolute 0.19 #; Lymphocytes # 1.3 10*3/uL (1.4-4.0); Lymphocytes % 8.3 % (21.2-54.2); Mean Corpuscular HGB Conc 31.2 GM/DL (32-36); Mean Corpuscular Volume 103.9 FL (87-102); Mean Platelet Volume 10.5 FL (9.6-12.0); Monocytes % 4.3 % (1.7-12.7); NRBC # 0.02 10*3/uL; Neutrophils % 85.5 % (38.7-73.9); Platelet Count 184 T/CUMM (130-400); Red Blood Count 3.83 MC/CUMM (3.8-5.5)
[2019-08-22 05:05] LABS: PT Patient Result 11.2 SECS (9.6-12.2)
[2019-08-22 05:20] LABS: Alanine Aminotransferase 36 U/L (16-61); Albumin 3.2 G/DL (3.4-5.0); Alkaline Phosphatase 93 U/L (45-117); Aspartate Amino Transferase 51 U/L (0-37); Bilirubin,Total < 0.39 MG/DL (0.2-1.0); Blood Urea Nitrogen 37 MG/DL (7-18); Calcium 10.8 MG/DL (8.5-10.1); Glucose 125 MG/DL (74-106); Osmolality,Calculated 301.4 MOS/KG (273-304); Total Protein 7.2 G/DL (6.4-8.3)
[2019-08-22 05:23] LABS: Estimated Glom Filtration Rate 0 ML/MIN
[2019-08-22 05:34] LABS: ABG Base Excess -4.3 MMOL/L (-2.5-2.5); ABG HCO3 20.8 MMOL/L (20-26); ABG Oxygen Saturation 92.4 % (95-100); ABG PO2 87.1 MM HG (80-95); ABG TCO2 25.3 MMOL/L (23-27)
[2019-08-22 05:40] LABS: ABG PH 7.141 (7.35-7.45)
[2019-08-22 05:41] LABS: ABG PCO2 79.8 MM HG (35-48)
[2019-08-22 07:29] LABS: Barbiturates Screen,Urine Negative (Negative); Benzodiazepines Screen,Urine Negative (Negative); Cannabinoid Screen,Urine Negative (Negative); Opiate Screen,Urine Negative (Negative); Phencyclidine Screen,Urine Negative (Negative)
[2019-08-22] MEDS ORDERED: ALBUTEROL 2.5 MG/3 ML NEB RESP TX PRN (08:07)
[2019-08-22] MEDS ORDERED: ONDANSETRON 4 MG/2 ML VIAL IV PRN (08:07)
[2019-08-22] MEDS ORDERED: MORPHINE 4 MG/1 ML VIAL IV PRN (08:07)
[2019-08-22] MEDS ORDERED: AMIODARONE 450 MG/9 ML VIAL IV ONE (08:09)
[2019-08-22] MEDS ORDERED: AMIODARONE INJ 450 MG in DEXTROSE 5% 241 ML IV SCH (08:15)
[2019-08-22] MEDS ORDERED: SODIUM CHLORIDE 0.9% 1,000 ML IV SCH (08:30)
[2019-08-22 08:39] LABS: ABG Base Excess -4.4 MMOL/L (-2.5-2.5); ABG HCO3 20.7 MMOL/L (20-26); ABG Oxygen Saturation 95.9 % (95-100); ABG PH 7.252 (7.35-7.45); ABG PO2 91.5 MM HG (80-95); ABG TCO2 21.3 MMOL/L (23-27); Allen Test Positive; Pt O2 Delivery Device BIPAP
[2019-08-22] MEDS: BUDESONIDE 0.5 MG/2 ML NEB RESP TX SCH (09:04)
[2019-08-22 09:51] LABS: Apearance,Urine CLEAR (Clear); Bilirubin,Urine Negative (Negative); Blood, Urine Negative (Negative); Glucose,Urine (UA) Negative (Negative); Hyaline Casts,Urine 4 /LPF (0-3); Ketones,Urine Negative (Negative); Mucus,Urine Occasional /LPF (Occasional); Nitrite,Urine Negative (Negative); Protein,Urine Negative; RBC,Urine 1 /HPF (0-4); Urine Color Yellow (Yellow); Urine Specific Gravity 1.012 (1.001-1.035); Urine Urobilinogen < 2.0 EU/DL (0.2-1.0); WBC,Urine 3 /HPF (0-6)
[2019-08-22] MEDS ORDERED: FUROSEMIDE 20 MG/2 ML VIAL IV STA (10:13)
[2019-08-22] MEDS: LACTATED RINGERS 1,000 ML IV SCH ×4 (10:37→23:59)
[2019-08-22] MEDS: FAMOTIDINE 20 MG/2 ML VIAL IV SCH ×2 (10:38→21:46)
[2019-08-22] MEDS: methylPREDNISolone SOD SUC 40 MG/1 ML VIAL IV SCH ×2 (10:38→21:52)
[2019-08-22] MEDS: cefTRIAXone 1,000 MG in SYRINGE 1 EACH IV SCH (10:39)
[2019-08-22] MEDS: INSULIN REGULAR 100 UNIT/ML SUBCUT SCH ×3 (11:36→21:55)
[2019-08-22 12:35] LABS: Apearance,Urine Slightly Hazy (Clear); Bacteria,Urine Occasional /HPF (Few); Bilirubin,Urine Negative (Negative); Blood, Urine Negative (Negative); Glucose,Urine (UA) Negative (Negative); Hyaline Casts,Urine 15 /LPF (0-3); Ketones,Urine Negative (Negative); Mucus,Urine Occasional /LPF (Occasional); Nitrite,Urine Negative (Negative); Protein,Urine Negative; RBC,Urine <1 /HPF (0-4); Squamous Epithelial Cell,Urine Occasional /HPF (0-10); Urine Color Yellow (Yellow); Urine Specific Gravity 1.013 (1.001-1.035); Urine Urobilinogen < 2.0 EU/DL (0.2-1.0); WBC,Urine 5 /HPF (0-6)
[2019-08-22] MEDS: POLYVINYL ALCOHOL 1.4% OPH SOLN 15 ML BOTTLE RIGHT EYE SCH ×3 (13:38→21:54)
[2019-08-22] MEDS: ALBUTEROL/IPRATROPIUM 3 ML NEB RESP TX SCH ×2 (13:55→20:35)
[2019-08-22] MEDS: DOXYCYCLINE HYCLATE INJ 100 MG in SODIUM CHLORIDE 0.9% 100 ML IV SCH (15:26)
[2019-08-22] MEDS: AMIODARONE INJ 450 MG in DEXTROSE 5% 241 ML IV SCH (16:12)
[2019-08-22] MEDS ORDERED: LACTULOSE 20 GM/30 ML UDCUP PO SCH (18:00)
[2019-08-22] MEDS: LACTULOSE 20 GM/30 ML UDCUP PO SCH (21:54)
[2019-08-23] MEDS: DOXYCYCLINE HYCLATE INJ 100 MG in SODIUM CHLORIDE 0.9% 100 ML IV SCH ×2 (02:13→15:30)
[2019-08-23] MEDS: ALBUTEROL/IPRATROPIUM 3 ML NEB RESP TX SCH ×4 (02:34→19:00)
[2019-08-23] MEDS: BUDESONIDE 0.5 MG/2 ML NEB RESP TX SCH ×3 (02:34→19:00)
[2019-08-23 04:44] LABS: Basophils % 0.1 % (0.0-0.8); Hemoglobin 9.3 GM/DL (14.0-18.0); Immature Granulocytes Absolute 0.12 #; Lymphocytes # 0.2 10*3/uL (1.4-4.0); Lymphocytes % 1.9 % (21.2-54.2); Mean Corpuscular Volume 102.4 FL (87-102); Mean Platelet Volume 9.8 FL (9.6-12.0); Monocytes % 0.8 % (1.7-12.7); Neutrophils % 96.2 % (38.7-73.9); Platelet Count 166 T/CUMM (130-400); Red Blood Count 2.93 MC/CUMM (3.8-5.5); Red Cell Distribution Width 16.2 % (9.3-17.3); White Blood Count 11.9 T/CUMM (4-12)
[2019-08-23 05:26] LABS: Albumin 2.5 G/DL (3.4-5.0); Bilirubin,Total 0.5 MG/DL (0.2-1.0); Calcium 10.4 MG/DL (8.5-10.1); Osmolality,Calculated 307.3 MOS/KG (273-304); Thyroid Stimulating Hormone 0.346 uIU/ml (0.358-3.74); Total Protein 5.6 G/DL (6.4-8.3)
[2019-08-23 06:06] LABS: Lymphocytes 4 % (20-55); Segmented Neutrophils 93 % (50-85); Total Cells Counted 100
[2019-08-23 06:07] LABS: Anisocytosis 1+; Platelet Estimate Adequate
[2019-08-23] MEDS: INSULIN REGULAR 100 UNIT/ML SUBCUT SCH ×4 (08:10→20:28)
[2019-08-23] MEDS: LACTATED RINGERS 1,000 ML IV SCH ×2 (08:24→16:20)
[2019-08-23] MEDS: FAMOTIDINE 20 MG/2 ML VIAL IV SCH ×2 (09:16→20:17)
[2019-08-23] MEDS: methylPREDNISolone SOD SUC 40 MG/1 ML VIAL IV SCH ×2 (09:16→20:15)
[2019-08-23] MEDS: cefTRIAXone 1,000 MG in SYRINGE 1 EACH IV SCH (09:16)
[2019-08-23] MEDS: POLYVINYL ALCOHOL 1.4% OPH SOLN 15 ML BOTTLE RIGHT EYE SCH ×3 (09:17→20:15)
[2019-08-23] MEDS: AMIODARONE INJ 450 MG in DEXTROSE 5% 241 ML IV SCH (09:18)
[2019-08-23] MEDS: LACTULOSE 20 GM/30 ML UDCUP PO SCH ×2 (13:31→20:15)
[2019-08-23] MEDS ORDERED: LORazepam 2 MG/1 ML VIAL IV PRN (17:48)
[2019-08-24] MEDS: LACTATED RINGERS 1,000 ML IV SCH ×3 (00:16→16:39)
[2019-08-24] MEDS: AMIODARONE INJ 450 MG in DEXTROSE 5% 241 ML IV SCH ×2 (00:18→02:09)
[2019-08-24] MEDS: ALBUTEROL/IPRATROPIUM 3 ML NEB RESP TX SCH ×4 (01:50→19:30)
[2019-08-24] MEDS: DOXYCYCLINE HYCLATE INJ 100 MG in SODIUM CHLORIDE 0.9% 100 ML IV SCH ×2 (01:58→14:47)
[2019-08-24 05:52] LABS: Basophils % 0.1 % (0.0-0.8); Hematocrit 31.5 VOL% (42.0-52.0); Hemoglobin 9.6 GM/DL (14.0-18.0); Immature Granulocytes % 2.1 %; Immature Granulocytes Absolute 0.17 #; Lymphocytes # 0.3 10*3/uL (1.4-4.0); Lymphocytes % 3.5 % (21.2-54.2); Mean Corpuscular HGB Conc 30.5 GM/DL (32-36); Mean Platelet Volume 9.5 FL (9.6-12.0); NRBC # 0.02 10*3/uL; Neutrophils % 92.3 % (38.7-73.9); Platelet Count 185 T/CUMM (130-400); Red Blood Count 3.03 MC/CUMM (3.8-5.5); White Blood Count 8.1 T/CUMM (4-12)
[2019-08-24 06:18] LABS: Calcium 10.6 MG/DL (8.5-10.1)
[2019-08-24 06:22] LABS: Anisocytosis 1+; Band Neutrophils 4 % (0-10); Basophilic Stippling Slight; Lymphocytes 4 % (20-55); Platelet Estimate Normal; Segmented Neutrophils 90 % (50-85); Total Cells Counted 100
[2019-08-24 06:30] LABS: Free T4 (Free Thyroxine) 1.03 NG/DL (0.76-1.46); Thyroid Stimulating Hormone 0.416 uIU/ml (0.358-3.74)
[2019-08-24] MEDS: BUDESONIDE 0.5 MG/2 ML NEB RESP TX SCH ×2 (07:36→19:30)
[2019-08-24] MEDS: INSULIN REGULAR 100 UNIT/ML SUBCUT SCH ×4 (08:06→21:34)
[2019-08-24] MEDS: FAMOTIDINE 20 MG/2 ML VIAL IV SCH (09:16)
[2019-08-24] MEDS: cefTRIAXone 1,000 MG in SYRINGE 1 EACH IV SCH (09:17)
[2019-08-24] MEDS: methylPREDNISolone SOD SUC 40 MG/1 ML VIAL IV SCH (09:17)
[2019-08-24] MEDS: POLYVINYL ALCOHOL 1.4% OPH SOLN 15 ML BOTTLE RIGHT EYE SCH ×3 (09:17→21:42)
[2019-08-24] MEDS: LACTULOSE 20 GM/30 ML UDCUP PO SCH (09:18)
[2019-08-24] MEDS ORDERED: MAGNESIUM SULF RIDER 2 GM in PREMIX 1 EACH IV ONE (10:19)
[2019-08-24] MEDS ORDERED: MAGNESIUM SULF RIDER 4 GM in PREMIX 1 EACH IV PRN (10:59)
[2019-08-24] MEDS: MAGNESIUM SULF RIDER 2 GM in PREMIX 1 EACH IV PRN (13:15)
[2019-08-24] MEDS: POTASSIUM CHLORIDE RIDER 10 MEQ in PREMIX 1 EACH IV PRN ×4 (16:13→19:38)
[2019-08-24] MEDS: AMIODARONE 200 MG TABLET PO SCH (16:40)
[2019-08-24] MEDS ORDERED: DOCUSATE SODIUM 100 MG CAPSULE PO PRN (18:13)
[2019-08-24] MEDS ORDERED: METOCLOPRAMIDE 10 MG/10 ML UDCUP PO PRN (18:13)
[2019-08-24] MEDS: MONTELUKAST 10 MG TABLET PO SCH (21:42)
[2019-08-24] MEDS: MIRTAZAPINE 15 MG TABLET PO SCH (21:42)
[2019-08-24] MEDS: ASCORBIC ACID 500 MG TABLET PO SCH (21:42)
[2019-08-25] MEDS: ALBUTEROL/IPRATROPIUM 3 ML NEB RESP TX SCH ×4 (00:34→19:03)
[2019-08-25] MEDS: methylPREDNISolone SOD SUC 40 MG/1 ML VIAL IV SCH ×2 (00:42→13:20)
[2019-08-25] MEDS: LACTATED RINGERS 1,000 ML IV SCH ×3 (00:45→16:30)
[2019-08-25] MEDS: DOXYCYCLINE HYCLATE INJ 100 MG in SODIUM CHLORIDE 0.9% 100 ML IV SCH ×2 (01:39→14:30)
[2019-08-25] MEDS: POTASSIUM CHLORIDE RIDER 10 MEQ in PREMIX 1 EACH IV PRN ×4 (01:40→07:10)
[2019-08-25 05:36] LABS: Basophils % 0.1 % (0.0-0.8); Hematocrit 29.1 VOL% (42.0-52.0); Hemoglobin 9.4 GM/DL (14.0-18.0); Immature Granulocytes % 1.3 %; Immature Granulocytes Absolute 0.11 #; Lymphocytes # 0.3 10*3/uL (1.4-4.0); Mean Corpuscular HGB Conc 32.3 GM/DL (32-36); Mean Corpuscular Volume 102.1 FL (87-102); Mean Platelet Volume 9.4 FL (9.6-12.0); Monocytes % 1.7 % (1.7-12.7); Neutrophils % 93.9 % (38.7-73.9); Platelet Count 168 T/CUMM (130-400); Red Blood Count 2.85 MC/CUMM (3.8-5.5); White Blood Count 8.4 T/CUMM (4-12)
[2019-08-25 05:59] LABS: Albumin 2.3 G/DL (3.4-5.0); Bilirubin,Total 0.5 MG/DL (0.2-1.0); Calcium 10.6 MG/DL (8.5-10.1); Osmolality,Calculated 299.6 MOS/KG (273-304); Total Protein 5.2 G/DL (6.4-8.3)
[2019-08-25 06:15] LABS: Anisocytosis 1+; Hypochromasia 1+; Lymphocytes 3 % (20-55); Macrocytosis Slight; Microcytosis 1+; Platelet Estimate Adequate; Poikilocytosis Slight; Polychromasia Slight; Segmented Neutrophils 95 % (50-85); Total Cells Counted 100
[2019-08-25] MEDS: LEVOTHYROXINE 137 MCG TABLET PO SCH (06:31)
[2019-08-25] MEDS: BUDESONIDE 0.5 MG/2 ML NEB RESP TX SCH ×2 (07:17→19:05)
[2019-08-25] MEDS: FINASTERIDE 5 MG TABLET PO SCH (09:10)
[2019-08-25] MEDS: FUROSEMIDE 40 MG TABLET PO SCH (09:10)
[2019-08-25] MEDS: PANTOPRAZOLE 40 MG TABLET PO SCH (09:10)
[2019-08-25] MEDS: AMIODARONE 200 MG TABLET PO SCH (09:10)
[2019-08-25] MEDS: MONTELUKAST 10 MG TABLET PO SCH ×2 (09:10→21:35)
[2019-08-25] MEDS: POTASSIUM CHLORIDE 20 MEQ/15 ML UDCUP PO SCH (09:10)
[2019-08-25] MEDS: ASPIRIN EC 81 MG TABLET PO SCH (09:10)
[2019-08-25] MEDS: metOLazone 2.5 MG TABLET PO SCH (09:10)
[2019-08-25] MEDS: LACTOBACILLUS RHAMNOSUS GG CAPSULE PO SCH (09:10)
[2019-08-25] MEDS: cefTRIAXone 1,000 MG in SYRINGE 1 EACH IV SCH (09:11)
[2019-08-25] MEDS: INSULIN REGULAR 100 UNIT/ML SUBCUT SCH ×4 (09:26→21:36)
[2019-08-25] MEDS: POLYVINYL ALCOHOL 1.4% OPH SOLN 15 ML BOTTLE RIGHT EYE SCH ×3 (09:26→21:36)
[2019-08-25] MEDS: ASCORBIC ACID 500 MG TABLET PO SCH ×2 (09:28→21:36)
[2019-08-25] MEDS: FERROUS SULFATE 325 MG TABLET PO SCH (17:52)
[2019-08-25] MEDS: TAMSULOSIN 0.4 MG CAPSULE PO SCH (17:52)
[2019-08-25] MEDS: MIRTAZAPINE 15 MG TABLET PO SCH (21:35)
[2019-08-26] MEDS: LACTATED RINGERS 1,000 ML IV SCH ×2 (00:38→11:26)
[2019-08-26] MEDS: ALBUTEROL/IPRATROPIUM 3 ML NEB RESP TX SCH ×4 (00:44→20:25)
[2019-08-26] MEDS: methylPREDNISolone SOD SUC 40 MG/1 ML VIAL IV SCH ×3 (00:57→23:16)
[2019-08-26] MEDS: DOXYCYCLINE HYCLATE INJ 100 MG in SODIUM CHLORIDE 0.9% 100 ML IV SCH ×2 (01:00→15:04)
[2019-08-26 05:11] LABS: Basophils % 0.2 % (0.0-0.8); Hematocrit 28.6 VOL% (42.0-52.0); Hemoglobin 9.1 GM/DL (14.0-18.0); Immature Granulocytes % 1.9 %; Immature Granulocytes Absolute 0.12 #; Lymphocytes # 0.2 10*3/uL (1.4-4.0); Lymphocytes % 3.6 % (21.2-54.2); Mean Corpuscular HGB Conc 31.8 GM/DL (32-36); Mean Platelet Volume 9.4 FL (9.6-12.0); Monocytes % 1.9 % (1.7-12.7); Neutrophils % 92.4 % (38.7-73.9); Platelet Count 155 T/CUMM (130-400); Red Blood Count 2.86 MC/CUMM (3.8-5.5); Red Cell Distribution Width 15.8 % (9.3-17.3); White Blood Count 6.4 T/CUMM (4-12)
[2019-08-26 05:34] LABS: Band Neutrophils 1 % (0-10); Lymphocytes 5 % (20-55); Segmented Neutrophils 89 % (50-85); Total Cells Counted 100
[2019-08-26 05:35] LABS: Anisocytosis 1+; Platelet Estimate Normal
[2019-08-26 05:40] LABS: Albumin 2.3 G/DL (3.4-5.0); Bilirubin,Total 0.8 MG/DL (0.2-1.0); Calcium 9.9 MG/DL (8.5-10.1); Osmolality,Calculated 303.1 MOS/KG (273-304); Total Protein 5.1 G/DL (6.4-8.3)
[2019-08-26] MEDS: POTASSIUM CHLORIDE RIDER 10 MEQ in PREMIX 1 EACH IV PRN ×4 (06:02→09:37)
[2019-08-26] MEDS: LEVOTHYROXINE 137 MCG TABLET PO SCH (06:20)
[2019-08-26] MEDS: BUDESONIDE 0.5 MG/2 ML NEB RESP TX SCH ×2 (07:09→20:25)
[2019-08-26] MEDS ORDERED: POTASSIUM CHLORIDE RIDER 100 ML IV ONE ×3 (07:30→07:31)
[2019-08-26] MEDS: MAGNESIUM SULF RIDER 2 GM in PREMIX 1 EACH IV PRN (07:35)
[2019-08-26] MEDS: FUROSEMIDE 40 MG TABLET PO SCH (08:01)
[2019-08-26] MEDS: AMIODARONE 200 MG TABLET PO SCH (08:02)
[2019-08-26] MEDS: ASPIRIN EC 81 MG TABLET PO SCH (08:02)
[2019-08-26] MEDS: ASCORBIC ACID 500 MG TABLET PO SCH ×2 (08:02→21:06)
[2019-08-26] MEDS: MONTELUKAST 10 MG TABLET PO SCH ×2 (08:02→21:05)
[2019-08-26] MEDS: PANTOPRAZOLE 40 MG TABLET PO SCH (08:03)
[2019-08-26] MEDS: POLYVINYL ALCOHOL 1.4% OPH SOLN 15 ML BOTTLE RIGHT EYE SCH ×3 (08:03→23:00)
[2019-08-26] MEDS: FINASTERIDE 5 MG TABLET PO SCH (08:04)
[2019-08-26] MEDS: POTASSIUM CHLORIDE 20 MEQ/15 ML UDCUP PO SCH (08:04)
[2019-08-26] MEDS: INSULIN REGULAR 100 UNIT/ML SUBCUT SCH ×4 (08:05→23:28)
[2019-08-26] MEDS: LACTOBACILLUS RHAMNOSUS GG CAPSULE PO SCH (08:19)
[2019-08-26] MEDS: cefTRIAXone 1,000 MG in SYRINGE 1 EACH IV SCH (08:19)
[2019-08-26] MEDS: metOLazone 2.5 MG TABLET PO SCH (08:20)
[2019-08-26] MEDS ORDERED: MAGNESIUM SULF RIDER 4 GM in PREMIX 1 EACH IV ONE (08:59)
[2019-08-26] MEDS: TAMSULOSIN 0.4 MG CAPSULE PO SCH (17:33)
[2019-08-26] MEDS: MIRTAZAPINE 15 MG TABLET PO SCH (21:06)
[2019-08-27] MEDS: ALBUTEROL/IPRATROPIUM 3 ML NEB RESP TX SCH ×4 (01:00→19:33)
[2019-08-27] MEDS: DOXYCYCLINE HYCLATE INJ 100 MG in SODIUM CHLORIDE 0.9% 100 ML IV SCH (03:14)
[2019-08-27] MEDS: LEVOTHYROXINE 137 MCG TABLET PO SCH (05:32)
[2019-08-27 06:17] LABS: Albumin 2.4 G/DL (3.4-5.0); Bilirubin,Total 0.6 MG/DL (0.2-1.0); Calcium 10.7 MG/DL (8.5-10.1); Osmolality,Calculated 289.1 MOS/KG (273-304); Total Protein 5.3 G/DL (6.4-8.3)
[2019-08-27] MEDS: BUDESONIDE 0.5 MG/2 ML NEB RESP TX SCH ×2 (07:22→19:33)
[2019-08-27] MEDS: POTASSIUM CHLORIDE 20 MEQ/15 ML UDCUP PO SCH (10:06)
[2019-08-27] MEDS: predniSONE 10 MG TABLET PO SCH (10:07)
[2019-08-27] MEDS: ASPIRIN EC 81 MG TABLET PO SCH (10:07)
[2019-08-27] MEDS: PANTOPRAZOLE 40 MG TABLET PO SCH (10:07)
[2019-08-27] MEDS: AMIODARONE 200 MG TABLET PO SCH (10:07)
[2019-08-27] MEDS: ASCORBIC ACID 500 MG TABLET PO SCH ×2 (10:07→21:22)
[2019-08-27] MEDS: FINASTERIDE 5 MG TABLET PO SCH (10:07)
[2019-08-27] MEDS: LACTOBACILLUS RHAMNOSUS GG CAPSULE PO SCH (10:08)
[2019-08-27] MEDS: cefTRIAXone 1,000 MG in SYRINGE 1 EACH IV SCH (10:08)
[2019-08-27] MEDS: POLYVINYL ALCOHOL 1.4% OPH SOLN 15 ML BOTTLE RIGHT EYE SCH ×3 (10:17→21:22)
[2019-08-27] MEDS: MONTELUKAST 10 MG TABLET PO SCH ×2 (10:17→21:21)
[2019-08-27] MEDS: INSULIN REGULAR 100 UNIT/ML SUBCUT SCH ×4 (10:18→21:21)
[2019-08-27] MEDS ORDERED: POTASSIUM CHLORIDE 20 MEQ TABLET PO ONE (11:00)
[2019-08-27] MEDS: DILTIAZEM 30 MG TABLET PO SCH ×2 (11:48→17:36)
[2019-08-27] MEDS: LEVOFLOXACIN 500 MG TABLET PO SCH (17:37)
[2019-08-27] MEDS: FERROUS SULFATE 325 MG TABLET PO SCH (17:37)
[2019-08-27] MEDS: TAMSULOSIN 0.4 MG CAPSULE PO SCH (17:37)
[2019-08-27] MEDS: MIRTAZAPINE 15 MG TABLET PO SCH (21:22)
[2019-08-28] MEDS: ALBUTEROL/IPRATROPIUM 3 ML NEB RESP TX SCH ×2 (00:12→07:16)
[2019-08-28] MEDS: DILTIAZEM 30 MG TABLET PO SCH ×2 (01:00→05:05)
[2019-08-28 05:28] LABS: Basophils % 0.1 % (0.0-0.8); Hematocrit 30.8 VOL% (42.0-52.0); Hemoglobin 10.1 GM/DL (14.0-18.0); Immature Granulocytes % 1.9 %; Immature Granulocytes Absolute 0.17 #; Lymphocytes # 0.6 10*3/uL (1.4-4.0); Lymphocytes % 7.3 % (21.2-54.2); Mean Corpuscular HGB Conc 32.8 GM/DL (32-36); Mean Corpuscular Volume 98.1 FL (87-102); Mean Platelet Volume 9.8 FL (9.6-12.0); Neutrophils % 86.7 % (38.7-73.9); Platelet Count 124 T/CUMM (130-400); Red Blood Count 3.14 MC/CUMM (3.8-5.5); Red Cell Distribution Width 15.8 % (9.3-17.3); White Blood Count 8.7 T/CUMM (4-12)
[2019-08-28 05:52] LABS: Calcium 10.1 MG/DL (8.5-10.1)
[2019-08-28 05:59] LABS: Albumin 2.3 G/DL (3.4-5.0); Bilirubin,Total 0.5 MG/DL (0.2-1.0); Calcium 10.2 MG/DL (8.5-10.1); Osmolality,Calculated 296.6 MOS/KG (273-304)
[2019-08-28] MEDS: POTASSIUM CHLORIDE RIDER 10 MEQ in PREMIX 1 EACH IV PRN (06:22)
[2019-08-28] MEDS: LEVOTHYROXINE 137 MCG TABLET PO SCH (06:22)
[2019-08-28] MEDS: BUDESONIDE 0.5 MG/2 ML NEB RESP TX SCH ×2 (07:16→20:20)
[2019-08-28] MEDS: cefTRIAXone 1,000 MG in SYRINGE 1 EACH IV SCH (10:10)
[2019-08-28] MEDS: POTASSIUM CHLORIDE 20 MEQ/15 ML UDCUP PO SCH (10:11)
[2019-08-28] MEDS: FINASTERIDE 5 MG TABLET PO SCH (10:11)
[2019-08-28] MEDS: metOLazone 2.5 MG TABLET PO SCH (10:11)
[2019-08-28] MEDS: FUROSEMIDE 40 MG TABLET PO SCH (10:11)
[2019-08-28] MEDS: ASPIRIN EC 81 MG TABLET PO SCH (10:11)
[2019-08-28] MEDS: LEVOFLOXACIN 500 MG TABLET PO SCH (10:12)
[2019-08-28] MEDS: PANTOPRAZOLE 40 MG TABLET PO SCH (10:12)
[2019-08-28] MEDS: ASCORBIC ACID 500 MG TABLET PO SCH ×2 (10:12→20:26)
[2019-08-28] MEDS: LACTOBACILLUS RHAMNOSUS GG CAPSULE PO SCH (10:13)
[2019-08-28] MEDS: MONTELUKAST 10 MG TABLET PO SCH ×2 (10:13→20:26)
[2019-08-28] MEDS: AMIODARONE 200 MG TABLET PO SCH (10:13)
[2019-08-28] MEDS: predniSONE 10 MG TABLET PO SCH (10:13)
[2019-08-28] MEDS: POLYVINYL ALCOHOL 1.4% OPH SOLN 15 ML BOTTLE RIGHT EYE SCH ×3 (10:14→20:26)
[2019-08-28] MEDS: INSULIN REGULAR 100 UNIT/ML SUBCUT SCH ×4 (10:14→20:26)
[2019-08-28] MEDS: LEVALBUTEROL 0.63 MG/3 ML NEB RESP TX SCH ×2 (13:42→20:20)
[2019-08-28] MEDS: DILTIAZEM CD 180 MG CAPSULE PO SCH ×2 (17:03→20:26)
[2019-08-28] MEDS: TAMSULOSIN 0.4 MG CAPSULE PO SCH (17:13)
[2019-08-28] MEDS: MIRTAZAPINE 15 MG TABLET PO SCH (20:26)
[2019-08-29] MEDS: LEVALBUTEROL 0.63 MG/3 ML NEB RESP TX SCH ×2 (01:40→07:42)
[2019-08-29 05:50] LABS: Basophils % 0.1 % (0.0-0.8); Hematocrit 32.2 VOL% (42.0-52.0); Hemoglobin 10.4 GM/DL (14.0-18.0); Immature Granulocytes % 1.6 %; Lymphocytes # 0.7 10*3/uL (1.4-4.0); Mean Corpuscular HGB Conc 32.3 GM/DL (32-36); Mean Corpuscular Volume 99.1 FL (87-102); Mean Platelet Volume 10.1 FL (9.6-12.0); Monocytes % 3.7 % (1.7-12.7); Neutrophils % 88.6 % (38.7-73.9); Platelet Count 122 T/CUMM (130-400); Red Blood Count 3.25 MC/CUMM (3.8-5.5); Red Cell Distribution Width 15.9 % (9.3-17.3); White Blood Count 12.3 T/CUMM (4-12)
[2019-08-29] MEDS: LEVOTHYROXINE 137 MCG TABLET PO SCH (06:01)
[2019-08-29 06:20] LABS: Albumin 2.3 G/DL (3.4-5.0); Bilirubin,Total 0.4 MG/DL (0.2-1.0); Calcium 10.3 MG/DL (8.5-10.1); Osmolality,Calculated 294.7 MOS/KG (273-304)
[2019-08-29] MEDS: BUDESONIDE 0.5 MG/2 ML NEB RESP TX SCH (07:42)
[2019-08-29] MEDS: INSULIN REGULAR 100 UNIT/ML SUBCUT SCH ×2 (07:54→11:43)
[2019-08-29] MEDS: ASPIRIN EC 81 MG TABLET PO SCH (09:32)
[2019-08-29] MEDS: cefTRIAXone 1,000 MG in SYRINGE 1 EACH IV SCH (09:32)
[2019-08-29] MEDS: POTASSIUM CHLORIDE 20 MEQ/15 ML UDCUP PO SCH (09:32)
[2019-08-29] MEDS: MONTELUKAST 10 MG TABLET PO SCH (09:33)
[2019-08-29] MEDS: ASCORBIC ACID 500 MG TABLET PO SCH (09:33)
[2019-08-29] MEDS: DILTIAZEM CD 180 MG CAPSULE PO SCH (09:33)
[2019-08-29] MEDS: metOLazone 2.5 MG TABLET PO SCH (09:33)
[2019-08-29] MEDS: FINASTERIDE 5 MG TABLET PO SCH (09:33)
[2019-08-29] MEDS: FUROSEMIDE 40 MG TABLET PO SCH (09:33)
[2019-08-29] MEDS: AMIODARONE 200 MG TABLET PO SCH (09:33)
[2019-08-29] MEDS: LACTOBACILLUS RHAMNOSUS GG CAPSULE PO SCH (09:34)
[2019-08-29] MEDS: PANTOPRAZOLE 40 MG TABLET PO SCH (09:34)
[2019-08-29] MEDS: POLYVINYL ALCOHOL 1.4% OPH SOLN 15 ML BOTTLE RIGHT EYE SCH (09:34)
[2019-08-29] MEDS: predniSONE 10 MG TABLET PO SCH (09:34)
[2019-08-29] MEDS: MAGNESIUM SULF RIDER 2 GM in PREMIX 1 EACH IV PRN (09:40)
[2019-08-29] MEDS ORDERED: POTASSIUM CHLORIDE 20 MEQ TABLET PO SCH (10:00)
[2019-08-29 11:45] VITALS: BP 101/59
== END 2019-08-29 13:07 | DRG 441 ==
LOC: N.ED 04:29 → N.EDINP 08:07 → SUATTDRO 08:07 → N.CC 09:23 → N.2E 08-26 18:09
PROVIDERS: ADMIT Family Medicine; ATTEND Family Medicine